=== PATIENT | male | born 1965 | race Two or more races ===

== ENCOUNTER 2020-10-13 11:29 | Emergency (ER) | payer MEDICAID, OTHER ==
[~2020-10-13] VITALS: Ht 175.3 cm; Wt 63.5 kg
[2020-10-13 13:04] LABS: Basophils # (auto) 0 10 ^3/uL (0-0.2); Basophils % (auto) 0.3 % (0.0-2.0); Eosinophils # (auto) 0.1 10 ^3/uL (0-0.8); Lymphocytes # (auto) 0.8 10 ^3/uL (0.4-5.4); Nucleated Red Blood Cells % 0.1 %; Red Blood Cells 3.69 10^6/uL (4.5-5.90)
[2020-10-13 13:05] LABS: Eosinophils % (auto) 0.6 % (0.0-7.0); Hematocrit 38.4 % (41.0-53.0); Hemoglobin 13.4 g/dL (13.5-17.5); Lymphocytes % (auto) 8.7 % (10.0-50.0); Mean Corpuscular Hemoglobin 36.3 pg (28.0-32.0); Mean Corpuscular Hgb Conc. 34.8 g/dL (32.0-36.0); Mean Corpuscular Volume 104.2 fL (80.0-100.0); Monocytes # (auto) 0.5 10 ^3/uL (0-1.3); Monocytes % (auto) 5.6 % (0.0-12.0); Neutrophils # (auto) 8.2 10 ^3/uL (1.6-8.6); Neutrophils % (auto) 84.8 % (37.0-80.0); Platelet Count (auto) 210 10^3/uL (140-450); Red Cell Distribution Width 12.6 % (11.8-14.3); White Blood Cell 9.7 10^3/uL (4.4-10.8)
[2020-10-13 13:17] LABS: Albumin 3.3 g/dL (3.4-5.0); Anion Gap 6 (5-15); Blood Urea Nitrogen 10 mg/dL (7-18); Calcium 8.1 mg/dL (8.5-10.1); Carbon Dioxide 25 mmol/L (21-32); Chloride 109 mmol/L (98-107); Glucose 110 mg/dL (74-106); Potassium 3.9 mmol/L (3.5-5.1); Sodium 140 mmol/L (136-145)
[2020-10-13 13:23] LABS: Alanine Aminotransferase 23 U/L (16-61); Alkaline Phosphatase 91 U/L (45-117); Aspartate Aminotransferase 23 U/L (15-37); BUN/Creatinine Ratio 11.5; Bilirubin, Total 0.3 mg/dL (0.2-1.0); GFR African American 118 mL/min; GFR Non-African American 97 mL/min; Total Protein 6.5 g/dL (6.4-8.2)
[2020-10-13] MEDS ORDERED: SODIUM CHLORIDE 0.9% 1,000 ML IVB ONE (14:00)
[2020-10-13 15:37] LABS: Urine WBC None Seen /hpf (0 - 3)
[2020-10-13 15:41] LABS: INR 1.04 (0.9-1.15); Partial Thromboplastin Time 26.2 sec (23.0-31.2)
[2020-10-13 16:00] LABS: Urine Bacteria NONE SEEN /hpf (None Seen); Urine Blood Negative /uL (Negative); Urine Specific Gravity 1.004 (1.001-1.035)
[2020-10-13] MEDS ORDERED: MECLIZINE HCL 25 MG TAB PO ONE (16:30)
[2020-10-13 22:21] VITALS: BP 108/61
== END 2020-10-13 22:27 | disposition still patient (30) ==
LOC: ER 11:29 → EDSEX 11:29 → ER 22:27
DX: H81.12 Benign paroxysmal vertigo, left ear (principal); D75.89 Other specified diseases of blood and blood-forming organs; M54.5 Low back pain; G89.29 Other chronic pain; E46 Unspecified protein-calorie malnutrition; Z95.0 Presence of cardiac pacemaker; Z86.73 Personal history of transient ischemic attack (TIA), and cerebral infarction without residual deficits
CPT/HCPCS: 36415; 70450; 71045; 80053; 81001; 83735; 84484; 85025; 85610; 85730; 93005; 96360; 99285; J7030; J8597

== ENCOUNTER 2022-09-21 07:43 | Day surgery (SDC) | payer MEDICAID ==
[2022-09-18 14:49] LABS: Basophils # (auto) 0 10 ^3/uL (0-0.2); Eosinophils # (auto) 0.1 10 ^3/uL (0-0.8); Hemoglobin 15.3 g/dL (13.5-17.5); Monocytes # (auto) 0.4 10 ^3/uL (0-1.3)
[2022-09-18 14:52] LABS: Basophils % (auto) 0.3 % (0.0-2.0); Hematocrit 44.9 % (41.0-53.0); Lymphocytes % (auto) 13.8 % (10.0-50.0); Mean Corpuscular Hemoglobin 34.9 pg (28.0-32.0); Mean Corpuscular Volume 102.6 fL (80.0-100.0); Neutrophils # (auto) 5.8 10 ^3/uL (1.6-8.6); Neutrophils % (auto) 78.9 % (37.0-80.0); Nucleated Red Blood Cells % 0.2 %; Red Blood Cells 4.38 10^6/uL (4.5-5.90); Red Cell Distribution Width 13.5 % (11.8-14.3); White Blood Cell 7.3 10^3/uL (4.4-10.8)
[2022-09-18 15:39] LABS: INR 0.93 (0.9-1.15); Partial Thromboplastin Time 26.6 sec (24.6-33.4)
[2022-09-18 15:50] LABS: Albumin 3.8 g/dL (3.4-5.0); BUN/Creatinine Ratio 12.7 (10.0-20.0); Calcium 9.2 mg/dL (8.5-10.1); Potassium 3.9 mmol/L (3.5-5.1)
[2022-09-18 15:52] LABS: Bilirubin, Total 0.3 mg/dL (0.2-1.0); Total Protein 7.5 g/dL (6.4-8.2)
[~2022-09-21] VITALS: Ht 182.9 cm; Wt 68.0 kg
[~2022-09-21 07:43] MED LIST: ALBUAER3 IN; ATO40T PO; CLON0.5T3 PO; EPIN0.1I11 IJ; FERR325T20 PO; FLUO20TA34 PO; FURO1TAB33 PO; HYDR50CA2 PO; LURA40TA PO; ONDA-144 PO; PANC24002 PO; TIOTCAP IN
[2022-09-21 07:50] LABS: Urine Bacteria NONE SEEN /hpf (None Seen); Urine Blood Negative /uL (Negative); Urine Specific Gravity 1.013 (1.001-1.035); Urine WBC 1 /hpf (0 - 3)
[2022-09-21] MEDS ORDERED: LIDOCAINE 2% (LOCAL ANESTH.) PF 5ml SDV ONE (08:39)
[2022-09-21] MEDS ORDERED: PROPOFOL 10 MG/ML 20 ML IV ONE (08:39)
[2022-09-21 09:50] VITALS: BP 124/87
== END 2022-09-21 10:00 | disposition home or self-care (01) ==
LOC: GI 07:43
PROVIDERS: ATTEND Internal Medicine Gastroenterology
DX: Z12.11 Encounter for screening for malignant neoplasm of colon (principal); R11.2 Nausea with vomiting, unspecified; K57.30 Diverticulosis of large intestine without perforation or abscess without bleeding; K64.4 Residual hemorrhoidal skin tags; K64.8 Other hemorrhoids; K29.80 Duodenitis without bleeding; K29.50 Unspecified chronic gastritis without bleeding
CPT/HCPCS: 36415; 43239; 45378; 80053; 81001; 85025; 85610; 85730; 88305; 88342; J2001; J2704; J7030

== ENCOUNTER 2024-09-11 17:22 | Inpatient (IN) | payer MEDICAID ==
[~2024-09-11] VITALS: Ht 182.9 cm; Wt 98.0 kg
[~2024-09-11 17:22] MED LIST changes: -ATO40T PO; +ATOR-507 PO; -FLUO20TA34 PO; +FLUO20TA42 PO; -LURA40TA PO; +LURA40TA2 PO; +PANC2400 PO; -PANC24002 PO
[2024-09-11 18:00] LABS: Urine Bacteria None Seen /hpf (None Seen)
[2024-09-11 18:00] LABS: Eosinophils # (auto) 0.1 10 ^3/uL (0-0.8); Mean Corpuscular Hgb Conc. 34.6 g/dL (32.0-36.0)
[2024-09-11 18:02] LABS: Basophils # (auto) 0 10 ^3/uL (0-0.2); Basophils % (auto) 0.4 % (0.0-2.0); Eosinophils % (auto) 0.6 % (0.0-7.0); Hematocrit 50.1 % (41.0-53.0); Hemoglobin 17.3 g/dL (13.5-17.5); Lymphocytes % (auto) 17.7 % (10.0-50.0); Mean Corpuscular Hemoglobin 36.4 pg (28.0-32.0); Mean Corpuscular Volume 105.1 fL (80.0-100.0); Monocytes # (auto) 0.8 10 ^3/uL (0-1.3); Monocytes % (auto) 6.6 % (0.0-12.0); Neutrophils # (auto) 8.5 10 ^3/uL (1.6-8.6); Neutrophils % (auto) 74.7 % (37.0-80.0); Platelet Count (auto) 207 10^3/uL (140-450); Red Blood Cells 4.76 10^6/uL (4.5-5.90); White Blood Cell 11.4 10^3/uL (4.4-10.8)
[2024-09-11 18:10] LABS: Urine Blood Negative /uL (Negative); Urine Clarity Clear (Clear); Urine Color Yellow (Yellow); Urine Mucus FEW (None Seen); Urine Protein, UAD Negative (Negative); Urine Specific Gravity 1.015 (1.001-1.035); Urine Squamous Epithelial Cell FEW /hpf (<5); Urine Urobilinogen Normal (Negative); Urine WBC 1 /HPF (0-3); Urine pH 6.5 (5.0-9.0)
[2024-09-11 18:22] LABS: Alanine Aminotransferase 22 U/L (7-40); Alkaline Phosphatase 113 U/L (46-116); Anion Gap 8 (5-15); Aspartate Aminotransferase 27 U/L (13-40); BUN/Creatinine Ratio 16.2 (10.0-20.0); Blood Urea Nitrogen 17 mg/dL (9-23); Calcium 10.1 mg/dL (8.7-10.4); Carbon Dioxide 26 mmol/L (20-31); Chloride 106 mmol/L (98-107); Glucose 81 mg/dL (74-106); Sodium 140 mmol/L (136-145); Total Protein 7.8 g/dL (5.7-8.2)
[2024-09-11 18:23] LABS: Bilirubin, Total 0.7 mg/dL (0.2-1.0)
[2024-09-11 18:34] LABS: Albumin 4.9 g/dL (3.2-4.8)
--- NOTE | 2024-09-11 19:06 | ECG ---
[facility] Test Date: 2024-09-11 Test Time: 17:23:00 Pat Name: CHARISSE VO Department: ED Room: [address] [place] [address] Gender: M Solo Musician: mariana : 1965 Requested By: VICKIE SULLIVAN Order Number: [id number] Reading MD: Miguel Gomez Measurements Intervals Fowler Rate: 77 P: 53 MN: 161 QRS: 50 QRSD: 92 T: 26 QT: 387 QTc: 438 Interpretive Statements Sinus rhythm Electronically Signed On 09-12-2024 13:45:53 PDT by Miguel Gomez Please click the below link to view image of tracing.
--- NOTE | 2024-09-11 19:07 | DVH ---
CHEST RADIOGRAPH Indication: cp Technique: Single frontal view of the chest was obtained Comparison: CHEST PORTABLE on DOS: 10/13/20 FINDINGS: Lines and Tubes: None Lungs: No focal consolidation. Pleura: No effusion. No pneumothorax. Cardiomediastinal contours: Unremarkable Bones: No acute osseous abnormality. IMPRESSION: 1. Dual-chamber pacemaker place with pulse generator over the left chest. 2. Hyperinflation without significant change from 10/13/2020.
--- NOTE | 2024-09-11 19:33 | ED.PDOC ---
HPI Comments 59y M who presents to the ED via EMS for chief complaint of chest pain. Pt states he was at home and states at approx 1530 today, he started to have chest pain, tightness in nature, with pain radiating to the neck and L side of jaw, with associated numbness to the L arm. Pt states started to have shortness of breath and states he went to lay down in his bed and noticed he continued to have symptoms and called EMS. EMS arrived on scene and pt was given 1 nitro after which pt pain went from 12/04 to 06/06 with alleviation of his symptoms and pt was brought to the ED. Pt otherwise has noted history of CVA, asthma and sick sinus syndrome with pacemaker placement. Pt otherwise has noted stable vitals with BP 119/82, 02 sat 97% on room air, RR 18, heart rate of 83 and temp of 98.3 F. Pt now in the ED, otherwise denies any associated symptoms at this time. Chief Complaint: Chest Pain Time Seen by MD: 19:00 Primary Care Provider: LAQUITA Martinez Notes: Medications, Allergies Allergies: Coded Allergies: Acetaminophen (Verified Allergy, Mild, 10/13/20) Codeine (Verified Allergy, Mild, 10/13/20) Ibuprofen (Verified Allergy, Mild, 10/13/20) Home Meds Reported Medications Albuterol Sulfate (VENTOLIN MDI) 90 Mcg Ih, 90 MCG IN, INH 09/18/22 Tiotropium Wilbur Monohydrate (Spiriva Handihaler) 18 Mcg Cap, 18 MCG IN, CAP 09/18/22 Epinephrine (Anaphylaxis) (Auvi-Q) 0.1 Mg/0.1 Ml Inj, 0.1 MG IJ O for 1 Day, #1 INJ 09/18/22 Ondansetron (Zofran) 4 Mg Tab, 4 MG PO BID, TAB 09/18/22 Atorvastatin Calcium (Lipitor) 40 Mg Tab, 40 MG PO DAILY, TAB 09/18/22 Furosemide (Lasix) 20 Mg Tb, 20 MG PO DAILY, TAB 09/18/22 Fluoxetine Hcl (Fluoxetine Hcl) 20 Mg Tab, 20 MG PO DAILY, TAB 09/18/22 Pancreatic Enzymes (Creon) 24,000 Unt Cap, [address] UNT PO TID, CAP 09/18/22 Lurasidone Hydrochloride (LATUDA) 40 Mg Tab, 60 MG PO DAILY, TAB 09/18/22 Ferrous Sulfate (Ferosul) 325 Mg Tab, 325 MG PO BID, TAB 09/18/22 Hydroxyzine Pamoate (Hydroxyzine Pamoate) 50 Mg Cap, 50 MG PO DAILY, CAP 09/18/22 Clonazepam (KlonoPIN TABLET) 0.5 Mg Tb, 0.5 MG PO DAILY, TAB 09/18/22 Information Source: Patient, Emergency Med Personnel Mode of Arrival: EMS Brought in by: EMS Past Medical History PAST MEDICAL HISTORY: Asthma, CVA Past Medical History (Other): Sick sinus syndrome Surgical History: Pacemaker Family History Family History: Reviewed,noncontributory to illness Social History Smoker: Non-Smoker Alcohol: Denies ETOH Use Drugs: Marijuana Lives In: Home Constitutional: denies: chills, diaphoresis, fatigue, fever, malaise, sweats, weakness, others EENTM: denies: blurred vision, double vision, ear bleeding, ear discharge, ear drainage, ear pain, ear ringing, eye pain, eye redness, hearing loss, mouth pain, mouth swelling, nasal discharge, nose bleeding, nose congestion, nose pain, photophobia, tearing, throat pain, throat swelling, voice changes, others Respiratory: denies: cough, hemoptysis, orthopnea, SOB at rest, shortness of breath, SOB with excertion, stridor, wheezing, others Cardiovascular: reports: chest pain; denies: dizzy spells, diaphoresis, Dyspnea on exertion, edema, irregular heart beat, left arm pain, lightheadedness, palpitations, PND, syncope, others Gastrointestinal: denies: abdomen distended, abdominal pain, blood streaked bowels, constipated, diarrhea, dysphagia, difficulty swallowing, hematemesis, melena, nausea, poor appetite, poor fluid intake, rectal bleeding, rectal pain, vomiting, others Genitourinary: denies: burning, dysuria, flank pain, frequency, hematuria, incontinence, penile discharge, penile sore, pain, testicle pain, testicle swelling, urgency, others Neurological: denies: dizziness, fainting, headache, left sided numbness, left sided weakness, numbness, paresthesia, pre-existing deficit, right sided numbness, right sided weakness, seizure, speech problems, tingling, tremors, weakness, others Musculoskeletal: denies: back pain, gout, joint pain, joint swelling, muscle pain, muscle stiffness, neck pain, others Integumetry: denies: bruises, change in color, change in hair/nails, dryness, laceration, lesions, lumps, rash, wounds, others Allergic/Immunocompromised: denies: Difficulty Healing, Frequent Infections, Hives, Itching, others Hematologic/Lymphatic: denies: anemia, blood clots, easy bleeding, easy bruising, swollen glands, others Endocrine: denies: excessive hunger, excessive sweating, excessive thirst, excessive urination, flushing, intolerance to cold, intolerance to heat, unexplained weight gain, unexplained weight loss, others Psychiatric: denies: anxiety, bipolar disorder, depression, hopeless, panic disorder, schizophrenia, sleepless, suicidal, others All Other Systems: Reviewed and Negative Physical Exam General Appearance: No Apparent Distress HEENT: Other (Pupils and face symmetric. Moist mucous membranes.) Neck: Full Range of Motion, Normal Inspection Respiratory: Lungs Clear, No Accessory Muscle Use, No Respiratory Distress, Normal Breath Sounds Cardiovascular: No Edema, No JVD, Regular Rate/Rhythm Breast Exam: Deferred Gastrointestinal: Non Tender, Soft Genitalia: Deferred Pelvic: Deferred Rectal: Deferred Extremities: Normal inspection, Normal range of motion, Non-tender, No pedal edema Neurologic: Alert (Oriented x4), Normal Affect, Normal Mood, Other (Ambulatory without difficulty.) Cerebellar Function: NOT DONE Reflexes: NOT DONE Skin: Dry, Normal Color, Warm Lymphatic: NOT DONE EKG EKG : Comments Sinus rhythm, rate 77, normal intervals, normal axis, normal QRS, no ST/T changes. Was a procedure done? Was a procedure done?: No CP Differential Dx Differential Diagnosis: Angina, Anxiety / Panic Attack, Electrolyte Disorder, Heart Failure, MA, Pulmonary Embolus Differential Diagnosis: Angina, Aortic dissection, Chest Wall Pain, Costochondritis, Esophageal reflux/spasm, Gastritis, Pericarditis, Pneumonia X-Ray, Labs, Meds, VS Vital Signs Date Time Temp Pulse Resp B/P (MAP) Pulse Ox O2 Delivery O2 Flow Rate FiO2 09/11/24 17:27 98.3 83 18 119/82 (94) 97 98.3 09/11/24 17:23 77 Lab Test 09/11/24 18:37 09/11/24 17:58 09/11/24 17:41 Range/Units Troponin I High Sensitivity 19 17 </=54 ng/L Urine Color Yellow Yellow Urine Clarity Clear Clear Urine pH 6.5 5.0-9.0 Urine Specific [place] 1.015 1.001-1.035 Urine Protein Negative Negative Urine Ketones Negative Negative Urine Blood Negative Negative /uL Urine Nitrite Negative Negative Urine Bilirubin Negative Negative Urine Urobilinogen Normal Negative mg/dL Urine Leukocyte Esterase Negative Negative /uL Urine RBC <1 0 - 3 /hpf Urine Microscopic WBC 1 0-3 /HPF Urine Squamous Epithelial Cells Few <5 /hpf Urine Bacteria None seen None Seen /hpf Urine Mucus Few None Seen Urine Glucose Normal Normal mg/dL White Blood Count 11.4 H 4.4-10.8 10^3/uL Red Blood Count 4.76 4.5-5.90 10^6/uL Hemoglobin 17.3 13.5-17.5 g/dL Hematocrit 50.1 41.0-53.0 % Mean Corpuscular Volume 105.1 H 80.0-100.0 fL Mean Corpuscular Hemoglobin 36.4 H 28.0-32.0 pg Mean Corpuscular Hemoglobin Concent 34.6 32.0-36.0 g/dL Red Cell Distribution Width 13.0 11.8-14.3 % Platelet Count 207 140-450 10^3/uL Mean Platelet Volume 6.0 L 6.9-10.8 fL Neutrophils (%) (Auto) 74.7 37.0-80.0 % Lymphocytes (%) (Auto) 17.7 10.0-50.0 % Monocytes (%) (Auto) 6.6 0.0-12.0 % Eosinophils (%) (Auto) 0.6 0.0-7.0 % Basophils (%) (Auto) 0.4 0.0-2.0 % Neutrophils # (Auto) 8.5 1.6-8.6 10 ^3/uL Lymphocytes # (Auto) 2.0 0.4-5.4 10 ^3/uL Monocytes # (Auto) 0.8 0-1.3 10 ^3/uL Eosinophils # (Auto) 0.1 0-0.8 10 ^3/uL Basophils # (Auto) 0 0-0.2 10 ^3/uL Nucleated Red Blood Cells 0.0 % Sodium Level 140 136-145 mmol/L Potassium Level 4.0 3.5-5.1 mmol/L Chloride Level 106 98-107 mmol/L Carbon Dioxide Level 26 20-31 mmol/L Anion Gap 8 5-15 Blood Urea Nitrogen 17 9-23 mg/dL Creatinine 1.05 0.700-1.30 mg/dL Glomerular Filtration Rate Calc 82 >90 mL/min BUN/Creatinine Ratio 16.2 10.0-20.0 Serum Glucose 81 74-106 mg/dL Calcium Level 10.1 8.7-10.4 mg/dL Total Bilirubin 0.7 0.2-1.0 mg/dL Aspartate Amino Transferase (AST) 27 13-40 U/L Alanine Aminotransferase (ALT) 22 7-40 U/L Alkaline Phosphatase 113 46-116 U/L B-Type Natriuretic Peptide 7.26 0-100 pg/mL Total Protein 7.8 5.7-8.2 g/dL Albumin 4.9 H 3.2-4.8 g/dL [place] [id number] Ph: [phone] DIAGNOSTIC IMAGING Diagnostic Imaging Report : [id number] Signed PATIENT: CHARISSE VO ACCT: [id number] UNIT: [id number] : 1965 LOC: ER ROOM / BED: / AGE / SEX: 59 / M ADM STATUS: REG ER SERVICE 45 ORDERING PHYSICIAN: VICKIE VICTORIA MD PROCEDURE(s): CXRP - CHEST PORTABLE REASON: cp ORDER NUMBER(s): [id number], ACCESSION NUMBER(s): [id number] CHEST RADIOGRAPH Indication: cp Technique: Single frontal view of the chest was obtained Comparison: CHEST PORTABLE on DOS: 10/13/20 FINDINGS: Lines and Tubes: None Lungs: No focal consolidation. Pleura: No effusion. No pneumothorax. Cardiomediastinal contours: Unremarkable Bones: No acute osseous abnormality. IMPRESSION: 1. Dual-chamber pacemaker place with pulse generator over the left chest. 2. Hyperinflation without significant change from 10/13/2020. ATED BY: ORLIN MILLS Jr., DO DICTATED DATE/TIME: 09/11/241903 SIGNED BY: ORLIN MILLS Jr., DO SIGNED DATE/TIME: 09/11/241903 CC: X-Ray, Labs, Meds, VS Comment 59-year-old male with a history of asthma, CVA, sick sinus syndrome status post pacemaker insertion complaining of chest pain Vitals unremarkable Exam unremarkable Rhythm strip independently interpreted by me: Sinus rhythm, rate 77, no ectopy. Chest x-ray IMPRESSION: 1. Dual-chamber pacemaker place with pulse generator over the left chest. 2. Hyperinflation without significant change from 10/13/2020. CBC remarkable for WBC 11.4, metabolic panel unremarkable, BNP and 2 serial troponins negative Patient treated with the following in the ED: Nitro-Bid 1/2 in applied to chest wall with resolution of chest pain. Aspirin was not given due to stated allergy. Plan is to admit the patient for Cardiology evaluation. Time of 1ST Reevaluation: 19:30 Reevaluation 1ST: Unchanged Patient Education/Counseling: Diagnosis, Treatment Family Education/Counseling: No Family Present Departure 1 Departure Time of Disposition: 20:00 Impression: Primary Impression: Chest pain with high risk for cardiac etiology Disposition: ADMITTED INPATIENT Admit to: Tele Condition: Guarded Critical Care Note Critical Care Time?: No Stability Stability form required: No Heart Score Heart Score: Heart Score Response (Comments) Value History Highly Suspicious 2 EKG Normal 0 Age 45-64 1 Risk Factors 1 or 2 risk factors 1 Troponin Normal limit 0 Total 4 I personally scribed for VICKIE VICTORIA MD ([facility]) on 09/11/24 at 19:33. Electronically submitted by Landon Hairston ([facility]). VICKIE VICTORIA MD Sep 11, 2024 19:33
[2024-09-11] MEDS ORDERED: NITROGLYCERIN 0.4 MG SL TAB SL PRN (20:00)
[2024-09-11] MEDS ORDERED: MORPHINE SULFATE INJ 2 MG/ml SYRG IV PRN (20:00)
[2024-09-11] MEDS ORDERED: ONDANSETRON HCL 4 MG/2 ML VIAL IV PRN ×2 (20:00→20:15)
[2024-09-11] MEDS ORDERED: ALBUTEROL SULF 2.5 MG/0.5ML(0.5%) NEB SOLN NEB PRN (20:00)
[2024-09-11 20:20] VITALS: BP 119/82; PULSE 60; RESP 16; TEMP 98.3; O2SAT 96
[2024-09-11 20:28] LABS: Triglycerides 136 mg/dL (< 150)
[2024-09-11 20:30] LABS: HDL Cholesterol 43 mg/dL (40-59)
[2024-09-11 21:32] LABS: Cholesterol 264 mg/dL (< 200); LDL Cholesterol 210 mg/dL (< 100)
[2024-09-11] MEDS: ATORVASTATIN 20 MG TAB PO SCH (22:43)
[2024-09-11] MEDS: NITROGLYCERIN 2% OINT 1GM PKG TD ONE (22:43)
[2024-09-12] VITALS (9 sets, daily range): BP systolic 103–138; BP diastolic 71–83; PULSE 59–90; RESP 14–20; TEMP 97.4–98; O2SAT 96–98
--- NOTE | 2024-09-12 03:36 | DVHHP2 ---
History of Present Illness Reason for Visit: Chest pain History of Present Illness 59-year-old male presents for evaluation of chest pain. Patient reports a one day history of substernal sharp chest pain that was radiating to his back and up onto his jaw. He also reports left arm numbness. Patient also developed some shortness for breath. Currently rates the pain at 5/10 intensity. Past Medical History Asthma, CVA, sick sinus syndrome Past Surgical History Pacemaker Family History Noncontributory Smoke: No ALCOHOL: none Drugs: Marijuana Lives: with Family Review of Systems Review of Systems Review of systems are currently negative otherwise addressed in HPI. Allergies: Coded Allergies: NSAIDs (Verified Allergy, Severe, 09/11/24) Acetaminophen (Verified Allergy, Mild, 10/13/20) Codeine (Verified Allergy, Mild, 10/13/20) Ibuprofen (Verified Allergy, Mild, 10/13/20) Medications Current Medications Medications Dose Ordered Sig/Lauren Route Start Time Stop Time Status Last Admin Dose Admin Ondansetron HCl 4 mg Q4HP PRN IV 09/11/24 20:00 Nitroglycerin 0.4 mg Q5MINP PRN SL 09/11/24 20:00 Morphine Sulfate 2 mg Q30M PRN IV 09/11/24 20:00 Atorvastatin Calcium 40 mg HS PO 09/11/24 22:00 09/11/24 22:43 40 MG Aspirin 81 mg DAILY PO 09/12/24 10:00 Future Hold Albuterol 2.5 mg Q6HPRN PRN NEB 09/11/24 20:00 Furosemide 20 mg DAILY PO 09/12/24 10:00 Ondansetron HCl 4 mg Q4HP PRN IV 09/11/24 20:15 UNV Exam Vital Signs Vital Signs Date Time Temp Pulse Resp B/P (MAP) Pulse Ox O2 Delivery O2 Flow Rate FiO2 09/12/24 03:19 69 09/12/24 02:12 17 96 Room Air* 0 21 09/12/24 02:12 97.6 138/83 (101) 97.6 Exam Gen: 59-year-old male in mild distress Skin: Warm, dry, normal color and texture, no rash. HEENT: Normocephalic atraumatic, mucous membranes moist and pink. Neck: Cervical and supraclavicular nodes normal without enlargement, trachea is midline, thyroid gland is normal without masses. Pulmonary: Clear to auscultation and percussion bilaterally. Cardiac: Regular rate and rhythm. No murmur Abdomen: Soft, nontender, nondistended, bowel sounds present all 4 quadrants, no guarding, no rigidity, no organomegaly. Extremities: No cyanosis, clubbing, no edema Neuro: Cranial nerves II through XII grossly intact, normal affect and speech, no focal motor deficits. Labs/Xrays ORDERING PHYSICIAN: VICKIE VICTORIA MD PROCEDURE(s): CXRP - CHEST PORTABLE REASON: cp ORDER NUMBER(s): [id number], ACCESSION NUMBER(s): [id number] CHEST RADIOGRAPH Indication: cp Technique: Single frontal view of the chest was obtained Comparison: CHEST PORTABLE on DOS: 10/13/20 FINDINGS: Lines and Tubes: None Lungs: No focal consolidation. Pleura: No effusion. No pneumothorax. Cardiomediastinal contours: Unremarkable Bones: No acute osseous abnormality. IMPRESSION: 1. Dual-chamber pacemaker place with pulse generator over the left chest. 2. Hyperinflation without significant change from 10/13/2020. Labs Test 09/11/24 18:37 09/11/24 17:58 09/11/24 17:55 09/11/24 17:41 Range/Units Troponin I High Sensitivity 19 </=54 ng/L Thyroid Stimulating Hormone (TSH) 1.32 0.55-4.78 uIU/mL Urine Color Yellow Yellow Urine Clarity Clear Clear Urine pH 6.5 5.0-9.0 Urine Specific [place] 1.015 1.001-1.035 Urine Protein Negative Negative Urine Ketones Negative Negative Urine Blood Negative Negative /uL Urine Nitrite Negative Negative Urine Bilirubin Negative Negative Urine Urobilinogen Normal Negative mg/dL Urine Leukocyte Esterase Negative Negative /uL Urine RBC <1 0 - 3 /hpf Urine Microscopic WBC 1 0-3 /HPF Urine Squamous Epithelial Cells Few <5 /hpf Urine Bacteria None seen None Seen /hpf Urine Mucus Few None Seen Urine Glucose Normal Normal mg/dL Triglycerides Level 136 < 150 mg/dL Cholesterol Level 264 H < 200 mg/dL LDL Cholesterol 210 H < 100 mg/dL HDL Cholesterol 43 40-59 mg/dL White Blood Count 11.4 H 4.4-10.8 10^3/uL Red Blood Count 4.76 4.5-5.90 10^6/uL Hemoglobin 17.3 13.5-17.5 g/dL Hematocrit 50.1 41.0-53.0 % Mean Corpuscular Volume 105.1 H 80.0-100.0 fL Mean Corpuscular Hemoglobin 36.4 H 28.0-32.0 pg Mean Corpuscular Hemoglobin Concent 34.6 32.0-36.0 g/dL Red Cell Distribution Width 13.0 11.8-14.3 % Platelet Count 207 140-450 10^3/uL Mean Platelet Volume 6.0 L 6.9-10.8 fL Neutrophils (%) (Auto) 74.7 37.0-80.0 % Lymphocytes (%) (Auto) 17.7 10.0-50.0 % Monocytes (%) (Auto) 6.6 0.0-12.0 % Eosinophils (%) (Auto) 0.6 0.0-7.0 % Basophils (%) (Auto) 0.4 0.0-2.0 % Neutrophils # (Auto) 8.5 1.6-8.6 10 ^3/uL Lymphocytes # (Auto) 2.0 0.4-5.4 10 ^3/uL Monocytes # (Auto) 0.8 0-1.3 10 ^3/uL Eosinophils # (Auto) 0.1 0-0.8 10 ^3/uL Basophils # (Auto) 0 0-0.2 10 ^3/uL Nucleated Red Blood Cells 0.0 % Sodium Level 140 136-145 mmol/L Potassium Level 4.0 3.5-5.1 mmol/L Chloride Level 106 98-107 mmol/L Carbon Dioxide Level 26 20-31 mmol/L Anion Gap 8 5-15 Blood Urea Nitrogen 17 9-23 mg/dL Creatinine 1.05 0.700-1.30 mg/dL Glomerular Filtration Rate Calc 82 >90 mL/min BUN/Creatinine Ratio 16.2 10.0-20.0 Serum Glucose 81 74-106 mg/dL Calcium Level 10.1 8.7-10.4 mg/dL Total Bilirubin 0.7 0.2-1.0 mg/dL Aspartate Amino Transferase (AST) 27 13-40 U/L Alanine Aminotransferase (ALT) 22 7-40 U/L Alkaline Phosphatase 113 46-116 U/L B-Type Natriuretic Peptide 7.26 0-100 pg/mL Total Protein 7.8 5.7-8.2 g/dL Albumin 4.9 H 3.2-4.8 g/dL Assessment/Plan Assessment/Plan Assessment Chest pain rule out ACS Dyslipidemia Plan Admit the patient to telemetry to the hospitalist Cardiology consultation Echocardiogram pending Resume home medications Continue treatment per orders. Plan discussed with: Patient My Orders Orders - EDVIN GONSALEZ Procedure Category Date Status Time Admit ADMIT 09/11/24 Transmitted 20:00 Ondansetron Hcl PHA 09/11/24 In Process (Zofran) 20:00 Cardiac DIET 09/12/24 Transmitted Diet-2gna,Lofat,Lochol Breakfast Echo 2d Mode Cardiac US 09/11/24 Logged DOP 20:00 Bedrest With Bathroom ASHLEY 09/11/24 In Process Privileg 20:00 Nitroglycerin PHA 09/11/24 In Process Sublingual (Ntrostat 20:00 Morphine Sulfate PHA 09/11/24 In Process Injection 20:00 Stat Ekg For Chest ASHLEY 09/11/24 In Process Pain 20:00 Notify Md Of Changes ASHLEY 09/11/24 In Process From Base 20:00 Dredge Pipe Operator For ASHLEY 09/11/24 In Process 24 Hours 20:00 Emergency Dysrhythmia ASHLEY 09/11/24 In Process Protocol 20:00 Rhythm Strips Once ASLHEY 09/11/24 In Process Every Shift 20:00 Oxygen By Nasal RT 09/11/24 Transmitted Cannula 20:00 Atorvastatin (Lipitor) PHA 09/11/24 In Process 22:00 Aspirin Tablet PHA 09/12/24 In Process 10:00 Albuterol Medneb PHA 09/11/24 In Process (Ventolin Medneb) 20:00 Furosemide Tablet PHA 09/12/24 In Process (Lasix Tablet) 10:00 B-Type Natriuretic LAB 09/12/24 Logged Peptide 04:00 Condition: Fair ASHLEY 09/11/24 In Process 20:05 Pharmacy ASHLEY 09/11/24 In Process Clarification: 20:26 Pharmacy ASHLEY 09/11/24 In Process Clarification: 21:01 Date of Service: Sep 11, 2024 Billing Provider: EDVIN GONSALEZ Common Visit Codes: [id number] INP/OBS CARE (HIGH) EDVIN GONSALEZ AGACNP Sep 12, 2024 03:36
[2024-09-12] MEDS: FUROSEMIDE 20 MG TAB PO SCH (09:18)
[2024-09-12] MEDS ORDERED: ASPirin 81 mg TAB PO SCH (10:00)
[2024-09-12] MEDS: PANTOPRAZOLE 40 MG TAB PO ONE (11:25)
[2024-09-12 11:39] LABS: Hepatitis B Surface Antibody Positive (Negative); Hepatitis C Antibody Negative (Negative)
--- NOTE | 2024-09-12 16:07 | DVHPNRES ---
Progress Note Date Seen: Sep 12, 2024 Resident Creating Document: GERMÁN ARMENDARIZ RESIDENT Medical Necessity Reason Pt with a Central, PICC or Fol: No Subjective Review of Systems Patient is 59-year-old male with past medical history of CVA, sick sinus syndrome status post pacemaker, asthma who came to the hospital with a chief complaint of substernal chest pain, radiating to back, left arm and jaw pain. Patient was given nitroglycerin which immediately resolved chest pain. Patient continued to be on telemetry, sinus rhythm. EKG showed no significant ST elevation. Troponin is not elevated. Cardiology consultation has been done for chest pain, echocardiogram is pending. Patient seen and examined at bedside. No new complaints. No active chest pain at this point. Pending echocardiogram and waiting for Cardiology consultation. Objective vital signs Vital Sign Date Time Temp Pulse Resp B/P (MAP) Pulse Ox O2 Delivery O2 Flow Rate FiO2 09/12/24 14:18 Room Air* 0 21 09/12/24 14:18 97.9 62 20 124/81 (95) 96 97.9 medications Current Medications Medications Dose Ordered Sig/Lauren Route Start Time Stop Time Status Last Admin Dose Admin Ondansetron HCl 4 mg Q4HP PRN IV 09/11/24 20:00 Nitroglycerin 0.4 mg Q5MINP PRN SL 09/11/24 20:00 Morphine Sulfate 2 mg Q30M PRN IV 09/11/24 20:00 Albuterol 2.5 mg Q6HPRN PRN NEB 09/11/24 20:00 Ondansetron HCl 4 mg Q4HP PRN IV 09/11/24 20:15 UNV Atorvastatin Calcium 80 mg HS PO 09/12/24 22:00 Clonazepam 0.5 mg DAILY PO 09/13/24 10:00 Furosemide 20 mg DAILY PO 09/13/24 10:00 Ferrous Sulfate 325 mg BID PO 09/12/24 22:00 Fluoxetine HCl 20 mg DAILY PO 09/13/24 10:00 Patient Own Medication 60 mg DAILY PO 09/13/24 10:00 Pantoprazole Sodium 40 mg DAILY@0600 PO 09/13/24 06:00 Examination General Appearance: Cooperative. Well developed. Well nourished. NAD Head Exam: Normal inspection Neck Exam: Normal inspection. Non-tender. Normal alignment Pulmonary/Respiratory: Chest non-tender. Clear bilateral breath sounds Cardiovascular/Chest: Regular rate and rhythm. No murmurs. No JVD. Peripheral Pulses: 2+ Radial (R). 2+ Radial (L). 2+ Pedal (R). 2+ Pedal (L) Abdominal Exam: Normal bowel sounds. Soft. Nontender. No hepatospenomegaly. No masses Ankle Exam: Negative ankle edema Lower extremities: Negative lower extremity edema Neuro/Mental Status: A&O x4. Coherent Thoughts/Psych: Normal thought pattern. Appropriate mood and affect. Good judgement and insight Appearance: In no acute distress Skin Exam: Normal inspection. Normal color. Warm. Dry laboratory and microbiology Laboratory Tests 09/11/24 17:41 Test 09/11/24 17:41 Range/Units Serum Glucose 81 74-106 mg/dL Labs and/or images reviewed: Labs reviewed by me Problem List/Assessment/Plan Problem List/Assessment/Plan Chest pain ? Unstable angina History of sick sinus syndrome Status post pacemaker Dyslipidemia History of asthma Depression no suicide ideation History of CVA Allergy of aspirin Plan/recommendation -patient was not given aspirin given allergy, was put on therapeutic Lovenox as anticoagulation until cardiology evaluation was not done. Antiplatelets therapy is not given until no plan for CABG. -high-dose atorvastatin given LDL level is greater than 190. -pending echocardiogram -EKG no significant ST or T elevation. -troponin nontender -pending cardiology evaluation -DVT prophylaxis with Lovenox -PUD prophylaxis with Protonix Goals of care discussed greater than 24 minutes, full code status. Plan discussed with Dr. Govea Plan discussed with: Patient, Other (RN) My Orders My Orders Orders - GERMÁN ARMENDARIZ RESIDENT Procedure Category Date Status Time Atorvastatin (Lipitor) PHA 09/12/24 In Process 22:00 Clonazepam Tablet PHA 09/13/24 In Process (Klonopin Tablet) 10:00 Furosemide Tablet PHA 09/13/24 In Process (Lasix Tablet) 10:00 Ferrous Sulfate Tablet PHA 09/12/24 In Process 22:00 Fluoxetine Capsule PHA 09/13/24 In Process (Prozac Capsule) 10:00 (Nf) Lurasidone PHA 09/13/24 In Process Hydrochloride (Latuda) 10:00 Pantoprazole Tablet PHA 09/13/24 In Process (Protonix Tablet) 06:00 * Cardiology Consult CONS 09/12/24 Transmitted 15:16 Date of Service: Sep 12, 2024 Billing Provider: SONG GOVEA MD Common Visit Codes: [id number] INP/OBS CARE(HIGH) GERMÁN ARMENDARIZ RESIDENT Sep 12, 2024 16:06 SONG GOVEA MD Sep 12, 2024 16:58
--- NOTE | 2024-09-12 16:32 | DVHINCON2 ---
Date Seen: Sep 12, 2024 Referring Physician MD [place] resident Reason for Consultation Chest pain History of Present Illness This is a 51-year-old male patient who presents to emergency room with chest pain that began yesterday at approximately 3:30 p.m.. He reports he was walking his dog when suddenly he began to have chest pain. He describes it as unprovoked, tight in nature, constant, midsternal with radiation to right and left-sided chest as well as left arm numbness and jaw pain. EMS was called. The patient reports receiving nitroglycerin via EMS personnel. The patient reports that the nitroglycerin helped relieve his symptoms. Initial twelve lead electrocardiogram reveals normal sinus rhythm without any significant ST segment changes. Initial troponin level of 17ng/L with flat trend thereafter. Significant past medical history includes sick sinus syndrome status post permanent pacemaker (Biotronik), CVA in 2016 without any residual deficit, asthma, depression, anxiety, and tobacco use. The patient also reports a remote history of substance abuse over 20 years ago. The patient reports his primary director report is . Past Medical History Past medical history reviewed. No other significant than mentioned above. Past Surgical History Hemorrhoidectomy Family History: Alcoholism G8 FATHER G8 SISTER Arthritis G8 MOTHER G8 BROTHER G8 SISTER Chronic obstructive pulmonary disease G8 BROTHER G8 SISTER Depression G8 BROTHER G8 BROTHER G8 SISTER Diabetes mellitus G8 MOTHER Glaucoma G8 MOTHER Hypercholesterolemia G8 MOTHER G8 BROTHER Hypertension G8 MOTHER G8 BROTHER Ischemic heart disease G8 FATHER Suicide G8 BROTHER Family History Family history reviewed. Social History Patient has a 40 pack-year history Patient admits to marijuana use, reports two previous methamphetamine use with last time being approximately 25 years ago Patient reports history of alcohol abuse, now a recovering alcoholic Allergies: Coded Allergies: NSAIDs (Verified Allergy, Severe, 09/11/24) Acetaminophen (Verified Allergy, Mild, 10/13/20) Codeine (Verified Allergy, Mild, 10/13/20) Ibuprofen (Verified Allergy, Mild, 10/13/20) Aspirin (Verified Allergy, Unknown, 09/12/24) Home Meds Reported Medications Albuterol Sulfate (VENTOLIN MDI) 90 Mcg Ih, 90 MCG IN, INH 09/18/22 Tiotropium [place] Monohydrate (Spiriva Handihaler) 18 Mcg Cap, 18 MCG IN, CAP 09/18/22 Epinephrine (Anaphylaxis) (Auvi-Q) 0.1 Mg/0.1 Ml Inj, 0.1 MG IJ O for 1 Day, #1 INJ 09/18/22 Ondansetron (Zofran) 4 Mg Tab, 4 MG PO BID, TAB 09/18/22 Atorvastatin Calcium (Lipitor) 40 Mg Tab, 40 MG PO DAILY, TAB 09/18/22 Furosemide (Lasix) 20 Mg Tb, 20 MG PO DAILY, TAB 09/18/22 Fluoxetine Hcl (Fluoxetine Hcl) 20 Mg Tab, 20 MG PO DAILY, TAB 09/18/22 Pancreatic Enzymes (Creon) 24,000 Unt Cap, 69630 UNT PO TID, CAP 09/18/22 Lurasidone Hydrochloride (LATUDA) 40 Mg Tab, 60 MG PO DAILY, TAB 09/18/22 Ferrous Sulfate (Ferosul) 325 Mg Tab, 325 MG PO BID, TAB 09/18/22 Hydroxyzine Pamoate (Hydroxyzine Pamoate) 50 Mg Cap, 50 MG PO DAILY, CAP 09/18/22 Clonazepam (KlonoPIN TABLET) 0.5 Mg Tb, 0.5 MG PO DAILY, TAB 09/18/22 Home Meds Home medications reviewed. Current Medications Current Medications Medications (Trade) Dose Ordered Sig/Lauren Route PRN Reason Start Time Stop Time Status Last Admin Ondansetron HCl (Zofran) 4 mg Q4HP PRN IV NAUSEA / VOMITING 09/11/24 20:00 Nitroglycerin (Ntrostat Sublingual) 0.4 mg Q5MINP PRN SL FOR CHEST PAIN 09/11/24 20:00 Morphine Sulfate 2 mg Q30M PRN IV FOR CHEST PAIN 09/11/24 20:00 Atorvastatin Calcium (Lipitor) 40 mg HS PO 09/11/24 22:00 09/12/24 08:20 DC 09/11/24 22:43 Aspirin 81 mg DAILY PO 09/12/24 10:00 09/12/24 10:44 DC Albuterol (Ventolin Medneb) 2.5 mg Q6HPRN PRN NEB SHORTNESS OF BREATH 09/11/24 20:00 Furosemide (Lasix Tablet) 20 mg DAILY PO 09/12/24 10:00 09/12/24 13:56 DC 09/12/24 09:18 Ondansetron HCl (Zofran) 4 mg Q4HP PRN IV NAUSEA / VOMITING 09/11/24 20:15 UNV Atorvastatin Calcium (Lipitor) 80 mg HS PO 09/12/24 22:00 Clonazepam (KlonoPIN TABLET) 0.5 mg DAILY PO 09/13/24 10:00 Furosemide (Lasix Tablet) 20 mg DAILY PO 09/13/24 10:00 Ferrous Sulfate 325 mg BID PO 09/12/24 22:00 Fluoxetine HCl (PROzac CAPSULE) 20 mg DAILY PO 09/13/24 10:00 Patient Own Medication 60 mg DAILY PO 09/13/24 10:00 Pantoprazole Sodium (Protonix Tablet) 40 mg DAILY@0600 PO 09/13/24 06:00 Review of Systems Constitutional: No symptom reported Ears, Nose, & Throat: No symptom reported Eyes: No symptom reported Neurological: No symptoms reported Pulmonary/Respiratory: No symptoms reported Cardiovascular: Chest pain Gastrointestinal: No symptom reported Genitourinary: No symptom reported Musculoskeletal: No symptom reported Skin: No symptom reported Psychiatric: No symptom reported Endocrine: No symptom reported Hematologic/Lymphatic: No symptom reported Vital Signs Vital Signs Date Time Temp Pulse Resp B/P (MAP) Pulse Ox O2 Delivery O2 Flow Rate FiO2 09/12/24 14:18 Room Air* 0 21 09/12/24 14:18 97.9 62 20 124/81 (95) 96 97.9 Physical Exam General Appearance: Cooperative. Well-developed. Well-nourished. No acute distress. Pulmonary/Respiratory: Clear, bilateral breaths sounds. Cardiovascular/Chest: Regular rate and rhythm. Peripheral Pulses: 2+ Radial (R). 2+ Radial (L). 2+ Pedal (R). 2+ Pedal (L) Abdominal Exam: Normal bowel sounds. Ankle Exam: Negative ankle edema Lower extremities: Negative lower extremity edema Neuro/Mental Status: A/OX4, coherent. Thoughts/Psych: Normal thought pattern. Appropriate mood and affect. Good judgment and insight. Appearance: No acute distress. Skin Exam: Normal inspection. Normal color. Warm and dry. Labs/Diagnostic Data Labs Test 09/12/24 05:49 09/11/24 18:37 09/11/24 17:58 09/11/24 17:55 Range/Units Hemoglobin A1c 5.2 <5.7 % A1C B-Type Natriuretic Peptide 12.79 0-100 pg/mL Hepatitis B Surface Antibody Positive H Negative Hepatitis C Antibody Negative Negative Troponin I High Sensitivity 19 </=54 ng/L Thyroid Stimulating Hormone (TSH) 1.32 0.55-4.78 uIU/mL Urine Color Yellow Yellow Urine Clarity Clear Clear Urine pH 6.5 5.0-9.0 Urine Specific [place] 1.015 1.001-1.035 Urine Protein Negative Negative Urine Ketones Negative Negative Urine Blood Negative Negative /uL Urine Nitrite Negative Negative Urine Bilirubin Negative Negative Urine Urobilinogen Normal Negative mg/dL Urine Leukocyte Esterase Negative Negative /uL Urine RBC <1 0 - 3 /hpf Urine Microscopic WBC 1 0-3 /HPF Urine Squamous Epithelial Cells Few <5 /hpf Urine Bacteria None seen None Seen /hpf Urine Mucus Few None Seen Urine Glucose Normal Normal mg/dL Triglycerides Level 136 < 150 mg/dL Cholesterol Level 264 H < 200 mg/dL LDL Cholesterol 210 H < 100 mg/dL HDL Cholesterol 43 40-59 mg/dL Test 09/11/24 17:41 Range/Units White Blood Count 11.4 H 4.4-10.8 10^3/uL Red Blood Count 4.76 4.5-5.90 10^6/uL Hemoglobin 17.3 13.5-17.5 g/dL Hematocrit 50.1 41.0-53.0 % Mean Corpuscular Volume 105.1 H 80.0-100.0 fL Mean Corpuscular Hemoglobin 36.4 H 28.0-32.0 pg Mean Corpuscular Hemoglobin Concent 34.6 32.0-36.0 g/dL Red Cell Distribution Width 13.0 11.8-14.3 % Platelet Count 207 140-450 10^3/uL Mean Platelet Volume 6.0 L 6.9-10.8 fL Neutrophils (%) (Auto) 74.7 37.0-80.0 % Lymphocytes (%) (Auto) 17.7 10.0-50.0 % Monocytes (%) (Auto) 6.6 0.0-12.0 % Eosinophils (%) (Auto) 0.6 0.0-7.0 % Basophils (%) (Auto) 0.4 0.0-2.0 % Neutrophils # (Auto) 8.5 1.6-8.6 10 ^3/uL Lymphocytes # (Auto) 2.0 0.4-5.4 10 ^3/uL Monocytes # (Auto) 0.8 0-1.3 10 ^3/uL Eosinophils # (Auto) 0.1 0-0.8 10 ^3/uL Basophils # (Auto) 0 0-0.2 10 ^3/uL Nucleated Red Blood Cells 0.0 % Sodium Level 140 136-145 mmol/L Potassium Level 4.0 3.5-5.1 mmol/L Chloride Level 106 98-107 mmol/L Carbon Dioxide Level 26 20-31 mmol/L Anion Gap 8 5-15 Blood Urea Nitrogen 17 9-23 mg/dL Creatinine 1.05 0.700-1.30 mg/dL Glomerular Filtration Rate Calc 82 >90 mL/min BUN/Creatinine Ratio 16.2 10.0-20.0 Serum Glucose 81 74-106 mg/dL Calcium Level 10.1 8.7-10.4 mg/dL Total Bilirubin 0.7 0.2-1.0 mg/dL Aspartate Amino Transferase (AST) 27 13-40 U/L Alanine Aminotransferase (ALT) 22 7-40 U/L Alkaline Phosphatase 113 46-116 U/L Total Protein 7.8 5.7-8.2 g/dL Albumin 4.9 H 3.2-4.8 g/dL Assessment Chest pain, rule out coronary artery disease Sick sinus syndrome status post permanent pacemaker (Biotronik) Dyslipidemia, newly diagnosed Asthma CVA without residual deficit Depression Anxiety Remote history of polysubstance use Tobacco use Plan/Recommendation We will continue with the following plan/recommendations (Dr. Littlejohn): * Transthoracic echocardiogram to evaluate cardiac function * Chest pain protocol * HEART score: 2 points * Lipid-lowering agent * Coronary angiogram * Permanent pacemaker interrogation * Close Cardiac surveillance Patient seen and examined at bedside with . Given the patient's clinical presentation, the patient was offered a coronary angiogram with left heart catheterization by director report . The procedure was discussed with the patient in full detail including risks and benefits. Risks include but are not limited to bleeding, contrast-induced nephropathy, stroke, and even . The patient understands and is agreeable to undergo the procedure. The patient will be tentatively scheduled for 09/15/24. Thank you for allowing us to care for this patient. Please call with any questions or concerns. Critical care time spent: 42 minutes This medical document was created using an electronic medical record system with voice recognition software and computerized dictation system. Although this document has been carefully reviewed, there might still be some phonetic and typographical errors. Occasional wrong-word or ``sound-alike substitutions may have occurred due to the inherent limitations of voice recognition software. These areas are purely typographical due to imperfections of the software programs and do not reflect any compromise in the patient's medical care. Please read the chart carefully and recognize, using context, where these substitutions have occurred. Plan discussed with: Patient NYHA Physical activity limitations: NA Date of Service: Sep 12, 2024 Billing Provider: RON LINDSEY Cardiology Common Codes: 22059-[id number] INP/OBS CARE (High) Cardiology Consultation Codes: [id number] CONSULT <45MIN RON LINDSEY Sep 12, 2024 16:32
[2024-09-12] MEDS: ATORVASTATIN 20 MG TAB PO SCH (20:55)
[2024-09-12] MEDS: FERROUS SULFATE 325mg EC TAB PO SCH (20:56)
--- NOTE | 2024-09-12 23:37 | DVHINCON2 ---
Date Seen: Sep 12, 2024 Referring Physician MD [place] resident Reason for Consultation Chest pain History of Present Illness This is a 51-year-old male past medical history of sick sinus syndrome status post permanent pacemaker (Biotronik), CVA in 2016 without any residual deficit, asthma, depression, anxiety, and tobacco use who presents to emergency room with a complaint of chest pain that began yesterday at approximately 3:30 p.m.. Patient reports he was walking his dog when suddenly he began to have chest pain. He describes it as unprovoked, tight in nature, constant, midsternal with radiation to right and left-sided chest as well as left arm numbness and jaw pain. Patient reports receiving nitroglycerin via EMS personnel. The patient reports that the nitroglycerin helped relieve his symptoms. Initial twelve lead electrocardiogram reveals normal sinus rhythm without any significant ST segment changes. Initial troponin level of 17ng/L with flat trend thereafter. The patient also reports a remote history of substance abuse over 20 years ago. Pat ient follow-up with me in my office in the outpatient setting. WBC 11.4. Chest x-ray shows a dual-chamber pacemaker place with pulse generator over the left chest. Patient was admitted to the hospital. I am asked to consult on this patient. Family History: Alcoholism G8 FATHER G8 SISTER Arthritis G8 MOTHER G8 BROTHER G8 SISTER Chronic obstructive pulmonary disease G8 BROTHER G8 SISTER Depression G8 BROTHER G8 BROTHER G8 SISTER Diabetes mellitus G8 MOTHER Glaucoma G8 MOTHER Hypercholesterolemia G8 MOTHER G8 BROTHER Hypertension G8 MOTHER G8 BROTHER Ischemic heart disease G8 FATHER Suicide G8 BROTHER Allergies: Coded Allergies: NSAIDs (Verified Allergy, Severe, 09/11/24) Acetaminophen (Verified Allergy, Mild, 10/13/20) Codeine (Verified Allergy, Mild, 10/13/20) Ibuprofen (Verified Allergy, Mild, 10/13/20) Aspirin (Verified Allergy, Unknown, 09/12/24) Home Meds Reported Medications Albuterol Sulfate (VENTOLIN MDI) 90 Mcg Ih, 90 MCG IN, INH 09/18/22 Tiotropium [place] Monohydrate (Spiriva Handihaler) 18 Mcg Cap, 18 MCG IN, CAP 09/18/22 Epinephrine (Anaphylaxis) (Auvi-Q) 0.1 Mg/0.1 Ml Inj, 0.1 MG IJ O for 1 Day, #1 INJ 09/18/22 Ondansetron (Zofran) 4 Mg Tab, 4 MG PO BID, TAB 09/18/22 Atorvastatin Calcium (Lipitor) 40 Mg Tab, 40 MG PO DAILY, TAB 09/18/22 Furosemide (Lasix) 20 Mg Tb, 20 MG PO DAILY, TAB 09/18/22 Fluoxetine Hcl (Fluoxetine Hcl) 20 Mg Tab, 20 MG PO DAILY, TAB 09/18/22 Pancreatic Enzymes (Creon) 24,000 Unt Cap, 72729 UNT PO TID, CAP 09/18/22 Lurasidone Hydrochloride (LATUDA) 40 Mg Tab, 60 MG PO DAILY, TAB 09/18/22 Ferrous Sulfate (Ferosul) 325 Mg Tab, 325 MG PO BID, TAB 09/18/22 Hydroxyzine Pamoate (Hydroxyzine Pamoate) 50 Mg Cap, 50 MG PO DAILY, CAP 09/18/22 Clonazepam (KlonoPIN TABLET) 0.5 Mg Tb, 0.5 MG PO DAILY, TAB 09/18/22 Current Medications Current Medications Medications (Trade) Dose Ordered Sig/Lauren Route PRN Reason Start Time Stop Time Status Last Admin Ondansetron HCl (Zofran) 4 mg Q4HP PRN IV NAUSEA / VOMITING 09/11/24 20:00 Nitroglycerin (Ntrostat Sublingual) 0.4 mg Q5MINP PRN SL FOR CHEST PAIN 09/11/24 20:00 Morphine Sulfate 2 mg Q30M PRN IV FOR CHEST PAIN 09/11/24 20:00 Atorvastatin Calcium (Lipitor) 40 mg HS PO 09/11/24 22:00 09/12/24 08:20 DC 09/11/24 22:43 Aspirin 81 mg DAILY PO 09/12/24 10:00 09/12/24 10:44 DC Albuterol (Ventolin Medneb) 2.5 mg Q6HPRN PRN NEB SHORTNESS OF BREATH 09/11/24 20:00 Furosemide (Lasix Tablet) 20 mg DAILY PO 09/12/24 10:00 09/12/24 13:56 DC 09/12/24 09:18 Ondansetron HCl (Zofran) 4 mg Q4HP PRN IV NAUSEA / VOMITING 09/11/24 20:15 UNV Atorvastatin Calcium (Lipitor) 80 mg HS PO 09/12/24 22:00 Clonazepam (KlonoPIN TABLET) 0.5 mg DAILY PO 09/13/24 10:00 Furosemide (Lasix Tablet) 20 mg DAILY PO 09/13/24 10:00 Ferrous Sulfate 325 mg BID PO 09/12/24 22:00 Fluoxetine HCl (PROzac CAPSULE) 20 mg DAILY PO 09/13/24 10:00 Patient Own Medication 60 mg DAILY PO 09/13/24 10:00 Pantoprazole Sodium (Protonix Tablet) 40 mg DAILY@0600 PO 09/13/24 06:00 Review of Systems Constitutional: No symptom reported Ears, Nose, & Throat: No symptom reported Eyes: No symptom reported Neurological: No symptoms reported Pulmonary/Respiratory: No symptoms reported Cardiovascular: Chest pain Gastrointestinal: No symptom reported Genitourinary: No symptom reported Musculoskeletal: No symptom reported Skin: No symptom reported Psychiatric: No symptom reported Endocrine: No symptom reported Hematologic/Lymphatic: No symptom reported Vital Signs Vital Signs Date Time Temp Pulse Resp B/P (MAP) Pulse Ox O2 Delivery O2 Flow Rate FiO2 09/12/24 14:18 Room Air* 0 21 09/12/24 14:18 97.9 62 20 124/81 (95) 96 97.9 Physical Exam GENERAL: Alert and oriented x 3. No acute distress. EYES: PERRL, EOMI. Anicteric. HENT: Moist mucous membranes. LUNGS: Clear to auscultation bilaterally. CARDIOVASCULAR: Regular rate and rhythm. ABDOMEN: Soft, nontender and nondistended. EXTREMITIES: No edema. NEUROLOGIC: No focal neurological deficits. SKIN: Warm, dry. Labs/Diagnostic Data Labs Test 09/12/24 05:49 09/11/24 18:37 09/11/24 17:58 09/11/24 17:55 Range/Units Hemoglobin A1c 5.2 <5.7 % A1C B-Type Natriuretic Peptide 12.79 0-100 pg/mL Hepatitis B Surface Antibody Positive H Negative Hepatitis C Antibody Negative Negative Troponin I High Sensitivity 19 </=54 ng/L Thyroid Stimulating Hormone (TSH) 1.32 0.55-4.78 uIU/mL Urine Color Yellow Yellow Urine Clarity Clear Clear Urine pH 6.5 5.0-9.0 Urine Specific [place] 1.015 1.001-1.035 Urine Protein Negative Negative Urine Ketones Negative Negative Urine Blood Negative Negative /uL Urine Nitrite Negative Negative Urine Bilirubin Negative Negative Urine Urobilinogen Normal Negative mg/dL Urine Leukocyte Esterase Negative Negative /uL Urine RBC <1 0 - 3 /hpf Urine Microscopic WBC 1 0-3 /HPF Urine Squamous Epithelial Cells Few <5 /hpf Urine Bacteria None seen None Seen /hpf Urine Mucus Few None Seen Urine Glucose Normal Normal mg/dL Triglycerides Level 136 < 150 mg/dL Cholesterol Level 264 H < 200 mg/dL LDL Cholesterol 210 H < 100 mg/dL HDL Cholesterol 43 40-59 mg/dL Test 09/11/24 17:41 Range/Units White Blood Count 11.4 H 4.4-10.8 10^3/uL Red Blood Count 4.76 4.5-5.90 10^6/uL Hemoglobin 17.3 13.5-17.5 g/dL Hematocrit 50.1 41.0-53.0 % Mean Corpuscular Volume 105.1 H 80.0-100.0 fL Mean Corpuscular Hemoglobin 36.4 H 28.0-32.0 pg Mean Corpuscular Hemoglobin Concent 34.6 32.0-36.0 g/dL Red Cell Distribution Width 13.0 11.8-14.3 % Platelet Count 207 140-450 10^3/uL Mean Platelet Volume 6.0 L 6.9-10.8 fL Neutrophils (%) (Auto) 74.7 37.0-80.0 % Lymphocytes (%) (Auto) 17.7 10.0-50.0 % Monocytes (%) (Auto) 6.6 0.0-12.0 % Eosinophils (%) (Auto) 0.6 0.0-7.0 % Basophils (%) (Auto) 0.4 0.0-2.0 % Neutrophils # (Auto) 8.5 1.6-8.6 10 ^3/uL Lymphocytes # (Auto) 2.0 0.4-5.4 10 ^3/uL Monocytes # (Auto) 0.8 0-1.3 10 ^3/uL Eosinophils # (Auto) 0.1 0-0.8 10 ^3/uL Basophils # (Auto) 0 0-0.2 10 ^3/uL Nucleated Red Blood Cells 0.0 % Sodium Level 140 136-145 mmol/L Potassium Level 4.0 3.5-5.1 mmol/L Chloride Level 106 98-107 mmol/L Carbon Dioxide Level 26 20-31 mmol/L Anion Gap 8 5-15 Blood Urea Nitrogen 17 9-23 mg/dL Creatinine 1.05 0.700-1.30 mg/dL Glomerular Filtration Rate Calc 82 >90 mL/min BUN/Creatinine Ratio 16.2 10.0-20.0 Serum Glucose 81 74-106 mg/dL Calcium Level 10.1 8.7-10.4 mg/dL Total Bilirubin 0.7 0.2-1.0 mg/dL Aspartate Amino Transferase (AST) 27 13-40 U/L Alanine Aminotransferase (ALT) 22 7-40 U/L Alkaline Phosphatase 113 46-116 U/L Total Protein 7.8 5.7-8.2 g/dL Albumin 4.9 H 3.2-4.8 g/dL Assessment Chest pain, rule out coronary artery disease. Sick sinus syndrome status post permanent pacemaker (Biotronik). Dyslipidemia, newly diagnosed. Asthma. CVA without residual deficit. Depression. Anxiety. Remote history of polysubstance use. Tobacco use. Plan/Recommendation I agree with your ongoing assessment and care of plan. Patient has been seen by Kassidy Garcia NP on my behalf, her and I discussed the plan with the patient. Transthoracic echocardiogram to evaluate cardiac function. Chest pain protocol. HEART score: 2 points. Lipid-lowering agent. Coronary angiogram. Permanent pacemaker interrogation. Close Cardiac surveillance. Additional plan as per the hospital course. Plan discussed with: Patient NYHA Physical activity limitations: NA Date of Service: Sep 12, 2024 Billing Provider: CLARICE BUTLER MD Cardiology Common Codes: [id number] INP/OBS CARE (High) Cardiology Consultation Codes: [id number] CONSULT <45MIN CLARICE BUTLER MD Sep 12, 2024 16:40
[2024-09-13] VITALS (9 sets, daily range): BP systolic 107–123; BP diastolic 65–83; PULSE 59–93; RESP 15–18; TEMP 97.3–98; O2SAT 96–99
--- NOTE | 2024-09-13 01:27 | DVHSR ---
APPROVED REPORT EXAM: Two-dimensional and M-mode echocardiogram with Doppler and color Doppler. Blood Pressure: 143/91 mmHg INDICATION Chest Pain Surgery/Intervention Pacemaker: RISK FACTORS Height: 71, Weight: 150 DIMENSIONS LVDd4.6 (3.8-5.7cm)LA (2D)3.7 (1.9-4.0cm)Aortic Root3.4 (2.0-3.7cm) LVDs3.1 (2.5-4.0cm)LA (MM) (1.9-4.0cm)Aortic Cusp Exc1.9 (1.5-2.0cm) EF (%) 60.0 (55-70%)Rt. Atrium4.5 (1.9-4.0cm)Asc. Aorta cm IVSd1.1 (0.7-1.1cm)RV (D) (1.8-2.4cm) PWd1.0 (0.7-1.1cm) Mitral Valve MitralMitral Stenosis E wave0.54m/sMV Mean GR.mmHg A wave0.51m/sMV Peak GR.mmHg E/A ratio1.12D MVAcm2 DECEL [id number] 1/2 [id number] IVRTmsDop MVA2.46cm2 Aortic Valve Aortic ValveAortic Stenosis V10.73m/Emi Mean GR.2mmHg V20.88m/Emi Peak GR.3mmHg LVOT Diameter2.5 (1.8-2.4cm)Doppler AVA4.07cm2 Pulmonic Valve V21.08m/s Tricuspid Valve TR Velocity2.24m/s [id number] Conclusion NORMAL LV EF AND IS 65% NORMAL VALVES NORMAL RV FUNCTION NO EFFUSION
[2024-09-13] MEDS: PANTOPRAZOLE 40 MG TAB PO SCH (06:32)
[2024-09-13 06:50] LABS: Eosinophils # (auto) 0.1 10 ^3/uL (0-0.8); Nucleated Red Blood Cells % 0.1 %; Red Cell Distribution Width 12.7 % (11.8-14.3)
[2024-09-13 06:52] LABS: Basophils # (auto) 0 10 ^3/uL (0-0.2); Basophils % (auto) 0.5 % (0.0-2.0); Eosinophils % (auto) 1.6 % (0.0-7.0); Hematocrit 47.4 % (41.0-53.0); Hemoglobin 16.3 g/dL (13.5-17.5); Lymphocytes % (auto) 29.5 % (10.0-50.0); Mean Corpuscular Hemoglobin 36.3 pg (28.0-32.0); Mean Corpuscular Hgb Conc. 34.5 g/dL (32.0-36.0); Mean Corpuscular Volume 105.3 fL (80.0-100.0); Monocytes # (auto) 0.7 10 ^3/uL (0-1.3); Monocytes % (auto) 9.6 % (0.0-12.0); Neutrophils # (auto) 4.1 10 ^3/uL (1.6-8.6); Neutrophils % (auto) 58.8 % (37.0-80.0); Platelet Count (auto) 179 10^3/uL (140-450); White Blood Cell 6.9 10^3/uL (4.4-10.8)
[2024-09-13 07:05] LABS: Anion Gap 8 (5-15); Carbon Dioxide 23 mmol/L (20-31); Potassium 3.7 mmol/L (3.5-5.1); Sodium 138 mmol/L (136-145)
[2024-09-13 07:07] LABS: Calcium 9.9 mg/dL (8.7-10.4)
[2024-09-13 07:11] LABS: BUN/Creatinine Ratio 16.8 (10.0-20.0); Blood Urea Nitrogen 16 mg/dL (9-23); Glucose 95 mg/dL (74-106)
[2024-09-13 07:16] LABS: Chloride 107 mmol/L (98-107)
[2024-09-13] MEDS: ENOXAPARIN SOD 40 MG/0.4 ML SYRINGE SC SCH (10:00)
[2024-09-13] MEDS: clonazePAM 0.5 MG TAB PO SCH (10:07)
[2024-09-13] MEDS: FLUoxetine HCL 20 MG CAP PO SCH (10:07)
[2024-09-13] MEDS: FUROSEMIDE 20 MG TAB PO SCH (10:08)
--- NOTE | 2024-09-13 13:06 | DVHPN2 ---
Subjective The patient is seen and examined at bedside. No complaint today. Reviewed: Care Plan, H&P, Labs, Medications, Previous Orders, Radiology Changes from previous H/P or p: No Changes Objective Vitals Vital Signs Date Time Temp Pulse Resp B/P (MAP) Pulse Ox O2 Delivery O2 Flow Rate FiO2 09/13/24 13:00 98.0 93 17 122/72 (89) 97 98.0 09/13/24 08:12 Room Air* 0 21 Intake/Output Intake and Output 09/13/24 07:00 Intake Total 820 ml Output Total 2 ml Balance 818 ml Intake Oral 820 ml Output Stool Total 2 ml # Voids 4 General Appearance: Alert, Oriented X3, Cooperative, No acute distress HEENT: Atraumatic, PERRLA, EOMI, Mucous membr. moist/pink Neck: Supple Lungs: Clear to auscultation, Normal air movement Cardiovascular: Regular rate, Normal S1, Normal S2, No murmurs, Gallops, Rubs Abdomen: Normal bowel sounds, Soft, No tenderness Neuro: Cranial nerves 3-12 NL Psych/Mental Status: Mental status NL Medications Current Medications Medications Dose Ordered Sig/Lauren Route Start Time Stop Time Status Last Admin Dose Admin Ondansetron HCl 4 mg Q4HP PRN IV 09/11/24 20:00 Nitroglycerin 0.4 mg Q5MINP PRN SL 09/11/24 20:00 Morphine Sulfate 2 mg Q30M PRN IV 09/11/24 20:00 Albuterol 2.5 mg Q6HPRN PRN NEB 09/11/24 20:00 Ondansetron HCl 4 mg Q4HP PRN IV 09/11/24 20:15 UNV Atorvastatin Calcium 80 mg HS PO 09/12/24 22:00 09/12/24 20:55 80 MG Clonazepam 0.5 mg DAILY PO 09/13/24 10:00 09/13/24 10:07 0.5 MG Furosemide 20 mg DAILY PO 09/13/24 10:00 09/13/24 10:08 20 MG Ferrous Sulfate 325 mg BID PO 09/12/24 22:00 09/13/24 10:07 325 MG Fluoxetine HCl 20 mg DAILY PO 09/13/24 10:00 09/13/24 10:07 20 MG Patient Own Medication 60 mg DAILY PO 09/13/24 10:00 Pantoprazole Sodium 40 mg DAILY@0600 PO 09/13/24 06:00 09/13/24 06:32 40 MG Enoxaparin Sodium 40 mg DAILY SC 09/13/24 10:00 Laboratory Results Laboratory Tests 09/13/24 06:01 Chemistry Test 09/13/24 06:01 Calcium Level 9.9 mg/dL (8.7-10.4) Urinalysis Test 09/11/24 17:58 Urine Color Yellow (Yellow) Urine Clarity Clear (Clear) Urine pH 6.5 (5.0-9.0) Urine Specific [place] 1.015 (1.001-1.035) Urine Protein Negative (Negative) Urine Ketones Negative (Negative) Urine Blood Negative /uL (Negative) Urine Nitrite Negative (Negative) Urine Bilirubin Negative (Negative) Urine Urobilinogen Normal mg/dL (Negative) Urine Leukocyte Esterase Negative /uL (Negative) Urine RBC <1 /hpf (0 - 3) Urine Microscopic WBC 1 /HPF (0-3) Urine Squamous Epithelial Cells Few /hpf (<5) Urine Bacteria None seen /hpf (None Seen) Urine Mucus Few (None Seen) Urine Glucose Normal mg/dL (Normal) Labs and/or images reviewed: Labs reviewed by me Assessment/Plan Assessment/Plan Acute chest pain likely due to Unstable angina R/O ACS History of sick sinus syndrome Status post pacemaker Dyslipidemia History of asthma Depression no suicide ideation History of CVA Allergy of aspirin Acute diarrhea -patient was not given aspirin given allergy, was put on therapeutic Lovenox as anticoagulation until cardiology evaluation was not done. Antiplatelets therapy is not given until no plan for CABG. -Continue high dose atorvastatin. Waiting for rn psych to see the patient. -echocardiogram showed an LVEF of 65% with normal cardiac valves and no pericardial effusion -EKG no significant ST or T elevation. -troponin on normal range -cardiology assessed the patient and determine that patient might benefit of left heart catheterization which we will be scheduled for tomorrow a.m. -hold diuretics due to possible dehydration due to diarrhea -ordered stool WBC and stool cultures -DVT prophylaxis with Lovenox -PUD prophylaxis with Protonix This medical document was created using an electronic medical record system with [employer] direct computerized dictation system. Although this document has been carefully reviewed, there may still be some phonetic and typographical errors. These areas are purely typographical due to imperfections of the software programs, and do not reflect any compromise in the patient's medical care. Plan discussed with: Patient Date of Service: Sep 13, 2024 Billing Provider: CHRIS VALDERRAMA MD Common Visit Codes: [id number] INP/OBS CARE(HIGH) CHRIS VALDERRAMA MD Sep 13, 2024 13:06
--- NOTE | 2024-09-13 21:24 | DVHPN2 ---
Progress Note - Dictate Date Seen: Sep 13, 2024 Medical Necessity Reason Pt with a Central, PICC or Fol: No Subjective Patient was seen and evaluated in follow up. Patient is c/o chest pain. Patient is recommended for coronary angiogram with left heart catheterization. The procedure was discussed with the patient in full detail including risks and benefits. Risks include but are not limited to bleeding, contrast-induced nephropathy, stroke, and even . The patient understands and is agreeable to undergo the procedure. The patient will be tentatively scheduled for 09/15/24. CMP is unremarkable. vital signs Vital Sign Date Time Temp Pulse Resp B/P (MAP) Pulse Ox O2 Delivery O2 Flow Rate FiO2 09/13/24 21:10 97 Room Air 0.0 09/13/24 21:10 21 09/13/24 16:59 97.8 79 16 120/72 (88) 97.8 Total Intake and Output 09/12/24 09/12/24 09/13/24 15:00 23:00 07:00 Intake Total 720 ml 100 ml Output Total 2 ml Balance 720 ml 98 ml medications Current Medications Medications Dose Ordered Sig/Lauren Route Start Time Stop Time Status Last Admin Dose Admin Ondansetron HCl 4 mg Q4HP PRN IV 09/11/24 20:00 Nitroglycerin 0.4 mg Q5MINP PRN SL 09/11/24 20:00 Morphine Sulfate 2 mg Q30M PRN IV 09/11/24 20:00 Albuterol 2.5 mg Q6HPRN PRN NEB 09/11/24 20:00 Ondansetron HCl 4 mg Q4HP PRN IV 09/11/24 20:15 UNV Atorvastatin Calcium 80 mg HS PO 09/12/24 22:00 09/13/24 21:13 80 MG Clonazepam 0.5 mg DAILY PO 09/13/24 10:00 09/13/24 10:07 0.5 MG Furosemide 20 mg DAILY PO 09/13/24 10:00 09/13/24 10:08 20 MG Ferrous Sulfate 325 mg BID PO 09/12/24 22:00 09/13/24 21:13 325 MG Fluoxetine HCl 20 mg DAILY PO 09/13/24 10:00 09/13/24 10:07 20 MG Patient Own Medication 60 mg DAILY PO 09/13/24 10:00 Pantoprazole Sodium 40 mg DAILY@0600 PO 09/13/24 06:00 09/13/24 06:32 40 MG Enoxaparin Sodium 40 mg DAILY SC 09/13/24 10:00 objective GENERAL: Alert and oriented x 3. No acute distress. EYES: PERRL, EOMI. Anicteric. HENT: Moist mucous membranes. LUNGS: Clear to auscultation bilaterally. CARDIOVASCULAR: Regular rate and rhythm. ABDOMEN: Soft, nontender and nondistended. EXTREMITIES: No edema. NEUROLOGIC: No focal neurological deficits. SKIN: Warm, dry. laboratory and microbiology Laboratory Tests 09/13/24 06:01 Test 09/13/24 06:01 Range/Units Serum Glucose 95 74-106 mg/dL Problem List Chest pain. Sick sinus syndrome status post permanent pacemaker (Biotronik). Dyslipidemia, newly diagnosed. Asthma. CVA without residual deficit. Depression. Anxiety. Remote history of polysubstance use. Tobacco use. Assessment/Plan Continued all current supportive medical care. Transthoracic echocardiogram to evaluate cardiac function. Coronary angiogram with left heart catheterization. Lipitor. DVT and GI prophylactics. Diuretics with Lasix. Morphine for pain management. Nitro SL. Additional plan as per the hospital course. Plan discussed with: Patient CLARICE BUTLER MD Sep 13, 2024 21:24
[2024-09-14] VITALS (11 sets, daily range): BP systolic 110–148; BP diastolic 72–95; PULSE 61–110; RESP 16–18; TEMP 97.2–98.1; O2SAT 68–99
[2024-09-14 08:26] LABS: Mean Corpuscular Volume 104.6 fL (80.0-100.0)
[2024-09-14 08:29] LABS: Basophils # (auto) 0 10 ^3/uL (0-0.2); Basophils % (auto) 0.5 % (0.0-2.0); Eosinophils # (auto) 0.1 10 ^3/uL (0-0.8); Eosinophils % (auto) 1.7 % (0.0-7.0); Hematocrit 48.4 % (41.0-53.0); Hemoglobin 17.1 g/dL (13.5-17.5); Lymphocytes # (auto) 2.1 10 ^3/uL (0.4-5.4); Lymphocytes % (auto) 29.9 % (10.0-50.0); Mean Corpuscular Hemoglobin 36.9 pg (28.0-32.0); Mean Corpuscular Hgb Conc. 35.3 g/dL (32.0-36.0); Monocytes # (auto) 0.7 10 ^3/uL (0-1.3); Monocytes % (auto) 9.7 % (0.0-12.0); Neutrophils % (auto) 58.2 % (37.0-80.0); Nucleated Red Blood Cells % 0.2 %; Platelet Count (auto) 190 10^3/uL (140-450); Red Blood Cells 4.63 10^6/uL (4.5-5.90); Red Cell Distribution Width 12.8 % (11.8-14.3); White Blood Cell 6.9 10^3/uL (4.4-10.8)
[2024-09-14 08:32] LABS: Anion Gap 6 (5-15); Carbon Dioxide 28 mmol/L (20-31); Chloride 105 mmol/L (98-107); Potassium 4.2 mmol/L (3.5-5.1); Sodium 139 mmol/L (136-145)
[2024-09-14 08:38] LABS: Glucose 101 mg/dL (74-106)
[2024-09-14 08:39] LABS: BUN/Creatinine Ratio 16.1 (10.0-20.0); Blood Urea Nitrogen 18 mg/dL (9-23)
[2024-09-14 08:42] LABS: Calcium 10.2 mg/dL (8.7-10.4)
[2024-09-14 12:56] LABS: INR 1.03 (0.9-1.15); Partial Thromboplastin Time 30.1 SEC (24.5-34.5); Prothrombin Time 10.9 sec (9.3-11.8)
--- NOTE | 2024-09-14 13:48 | DVHPNRES ---
Progress Note Date Seen: Sep 14, 2024 Resident Creating Document: MAGALIE HENLEY RESIDENT Has the PT tested + for MRSA If YES, has PT been informed?: No Medical Necessity Reason Pt with a Central, PICC or Fol: No Subjective Review of Systems This is a 59-year-old male with past medical history of CVA, sick sinus syndrome status post pacemaker, asthma who came to the hospital with a chief complaint of substernal chest pain, radiating to back, left arm and jaw pain. Patient was given nitroglycerin which immediately resolved chest pain. Patient continued to be on telemetry, sinus rhythm. EKG showed no significant ST elevation. Troponin is not elevated. Cardiology consultation has been done for chest pain, echocardiogram showed an LVEF of 65% with normal cardiac valves and no pericardial effusion. The patient was admitted for further assessment and management. Patient seen and examined at bedside. Patient is alert and oriented in person, place and time. Patient denies fever/chills, chest pain, shortness of breath or any other symptoms at this time. Echocardiogram showed an LVEF of 65% with normal cardiac valves and no pericardial effusion. Cardiology is in the case and schedule the patient for left heart catheterization tomorrow a.m. continue current medical management. ROS Constitutional: Denies weight loss, fever and chills. HEENT: Denies changes in vision and hearing. Respiratory: Denies shortness of breath and cough Cardiovascular: Denies chest discomfort or palpitations GI: Denies abdominal pain, nausea, vomiting and diarrhea. : Denies dysuria and urinary frequency. Musculoskeletal: Denies myalgias and joint pain Skin: Denies rash and pruritus. Neurological: Denies dizziness, headache, vision or hearing problems Objective vital signs Vital Sign Date Time Temp Pulse Resp B/P (MAP) Pulse Ox O2 Delivery O2 Flow Rate FiO2 09/14/24 09:14 132/85 09/14/24 08:40 97.6 86 17 98 97.6 09/14/24 08:05 Room Air* 0 21 Total Intake and Output 09/13/24 09/13/24 09/14/24 15:00 23:00 07:00 Intake Total 650 ml 600 ml Balance 650 ml 600 ml medications Current Medications Medications Dose Ordered Sig/Lauren Route Start Time Stop Time Status Last Admin Dose Admin Ondansetron HCl 4 mg Q4HP PRN IV 09/11/24 20:00 Nitroglycerin 0.4 mg Q5MINP PRN SL 09/11/24 20:00 Morphine Sulfate 2 mg Q30M PRN IV 09/11/24 20:00 Albuterol 2.5 mg Q6HPRN PRN NEB 09/11/24 20:00 Ondansetron HCl 4 mg Q4HP PRN IV 09/11/24 20:15 UNV Atorvastatin Calcium 80 mg HS PO 09/12/24 22:00 09/13/24 21:13 80 MG Clonazepam 0.5 mg DAILY PO 09/13/24 10:00 09/14/24 09:14 0.5 MG Furosemide 20 mg DAILY PO 09/13/24 10:00 09/14/24 09:14 20 MG Ferrous Sulfate 325 mg BID PO 09/12/24 22:00 09/14/24 09:14 325 MG Fluoxetine HCl 20 mg DAILY PO 09/13/24 10:00 09/14/24 09:13 20 MG Patient Own Medication 60 mg DAILY PO 09/13/24 10:00 Pantoprazole Sodium 40 mg DAILY@0600 PO 09/13/24 06:00 09/14/24 05:45 40 MG Enoxaparin Sodium 40 mg DAILY SC 09/13/24 10:00 09/14/24 09:13 40 MG Examination Physical Examination General: Patient alert and oriented in person, place and time. Patient following commands. HEENT: Normocephalic, atraumatic, moist mucous membranes Respiratory/pulmonary: Clear lungs bilaterally, no associated crackles or wheezes. Cardiovascular: Normal heart sounds S1 and S2 with no associated murmurs Abdomen: Abdomen nondistended, there is no pain to palpation in any of the abdominal quadrants, no palpable masses. Extremities: There is no peripheral edema present at the lower extremities. Peripheral Pulses: 3+ Radial (R). 3+ Radial (L). 3+ Dorsalis pedis (R). 3+ Dorsalis pedis(L) Skin: No rashes or pruritus, there is no sacral edema present at this time. Neurological: Intact cranial nerves with no focal neurologic deficits laboratory and microbiology Laboratory Tests 09/14/24 08:13 Test 09/14/24 08:13 Range/Units Serum Glucose 101 74-106 mg/dL Problem List/Assessment/Plan Problem List/Assessment/Plan Assessment/Plan Acute chest pain likely due to Unstable angina R/O ACS History of sick sinus syndrome Status post pacemaker Dyslipidemia History of asthma Depression no suicide ideation History of CVA Allergy of aspirin Acute diarrhea -patient was not given aspirin given allergy, was put on therapeutic Lovenox as anticoagulation until cardiology evaluation was not done. Antiplatelets therapy is not given until no plan for CABG. -Continue high dose atorvastatin -echocardiogram showed an LVEF of 65% with normal cardiac valves and no pericardial effusion -EKG no significant ST or T elevation. -troponin on normal range -cardiology assessed the patient and determine that patient might benefit of left heart catheterization which we will be scheduled for tomorrow a.m. -hold diuretics due to possible dehydration due to diarrhea -ordered stool WBC and stool cultures -DVT prophylaxis with Lovenox -PUD prophylaxis with Protonix Goals of care discussed with the patient at bedside for > 25min, FULL CODE Plan discussed with Dr. Perez Plan discussed with: Patient My Orders My Orders Orders - MAGALIE HENLEY Procedure Category Date Status Time Stool Wbc LAB 09/14/24 Transmitted 13:41 Stool Bacterial TERRI 09/14/24 Transmitted Culture 13:41 Date of Service: Sep 14, 2024 Billing Provider: CHRIS PEREZ MD Common Visit Codes: [id number] INP/OBS CARE(HIGH) MAGALIE HENLEY RESIDENT Sep 14, 2024 13:48 CHRIS PEREZ MD Sep 14, 2024 22:51
--- NOTE | 2024-09-14 23:37 | DVHPN2 ---
Progress Note - Dictate Date Seen: Sep 14, 2024 Has the PT tested + for MRSA If YES, has PT been informed?: No Medical Necessity Reason Pt with a Central, PICC or Fol: No Subjective Patient was seen and evaluated in follow up. Patient complains of chest pain. Echocardiogram shows an EF of 65%. Patient is scheduled for coronary angiogram with left heart catheterization. Telemetry reviewed. vital signs Vital Sign Date Time Temp Pulse Resp B/P (MAP) Pulse Ox O2 Delivery O2 Flow Rate FiO2 09/14/24 13:00 98.0 110 16 116/81 (93) 98 98.0 09/14/24 08:05 Room Air* 0 21 Total Intake and Output 09/13/24 09/13/24 09/14/24 15:00 23:00 07:00 Intake Total 650 ml 600 ml Balance 650 ml 600 ml medications Current Medications Medications Dose Ordered Sig/Lauren Route Start Time Stop Time Status Last Admin Dose Admin Ondansetron HCl 4 mg Q4HP PRN IV 09/11/24 20:00 Nitroglycerin 0.4 mg Q5MINP PRN SL 09/11/24 20:00 Morphine Sulfate 2 mg Q30M PRN IV 09/11/24 20:00 Albuterol 2.5 mg Q6HPRN PRN NEB 09/11/24 20:00 Ondansetron HCl 4 mg Q4HP PRN IV 09/11/24 20:15 UNV Atorvastatin Calcium 80 mg HS PO 09/12/24 22:00 09/13/24 21:13 80 MG Clonazepam 0.5 mg DAILY PO 09/13/24 10:00 09/14/24 09:14 0.5 MG Furosemide 20 mg DAILY PO 09/13/24 10:00 09/14/24 09:14 20 MG Ferrous Sulfate 325 mg BID PO 09/12/24 22:00 09/14/24 09:14 325 MG Fluoxetine HCl 20 mg DAILY PO 09/13/24 10:00 09/14/24 09:13 20 MG Patient Own Medication 60 mg DAILY PO 09/13/24 10:00 Pantoprazole Sodium 40 mg DAILY@0600 PO 09/13/24 06:00 09/14/24 05:45 40 MG Enoxaparin Sodium 40 mg DAILY SC 09/13/24 10:00 09/14/24 09:13 40 MG objective GENERAL: Alert and oriented x 3. No acute distress. EYES: PERRL, EOMI. Anicteric. HENT: Moist mucous membranes. LUNGS: Clear to auscultation bilaterally. CARDIOVASCULAR: Regular rate and rhythm. ABDOMEN: Soft, nontender and nondistended. EXTREMITIES: No edema. NEUROLOGIC: No focal neurological deficits. SKIN: Warm, dry. laboratory and microbiology Laboratory Tests 09/14/24 08:13 Test 09/14/24 08:13 Range/Units Serum Glucose 101 74-106 mg/dL Problem List Chest pain. Sick sinus syndrome status post permanent pacemaker (Biotronik). Dyslipidemia, newly diagnosed. Asthma. CVA without residual deficit. Depression. Anxiety. Remote history of polysubstance use. Tobacco use. Assessment/Plan Continued all current supportive medical care. Coronary angiogram with left heart catheterization. Lipitor. DVT and GI prophylactics. Diuretics with Lasix. Morphine for pain management. Nitro SL. Additional plan as per the hospital course. Plan discussed with: Patient CLARICE BUTLER MD Sep 14, 2024 14:15
[2024-09-15] VITALS (12 sets, daily range): BP systolic 106–133; BP diastolic 65–88; PULSE 60–81; RESP 12–17; TEMP 97.7–98.5; O2SAT 94–98
[2024-09-15 07:46] LABS: Basophils # (auto) 0 10 ^3/uL (0-0.2); Nucleated Red Blood Cells % 0.2 %
[2024-09-15 07:58] LABS: Chloride 103 mmol/L (98-107); Potassium 3.9 mmol/L (3.5-5.1); Sodium 139 mmol/L (136-145)
[2024-09-15 07:59] LABS: Anion Gap 7 (5-15); Carbon Dioxide 29 mmol/L (20-31)
[2024-09-15 08:00] LABS: Basophils % (auto) 0.4 % (0.0-2.0); Eosinophils # (auto) 0.2 10 ^3/uL (0-0.8); Eosinophils % (auto) 2.2 % (0.0-7.0); Hematocrit 50.8 % (41.0-53.0); Hemoglobin 17.8 g/dL (13.5-17.5); Lymphocytes % (auto) 28.3 % (10.0-50.0); Mean Corpuscular Hemoglobin 36.4 pg (28.0-32.0); Mean Corpuscular Hgb Conc. 35.1 g/dL (32.0-36.0); Mean Corpuscular Volume 103.7 fL (80.0-100.0); Monocytes # (auto) 0.7 10 ^3/uL (0-1.3); Monocytes % (auto) 10.4 % (0.0-12.0); Neutrophils # (auto) 4.2 10 ^3/uL (1.6-8.6); Neutrophils % (auto) 58.7 % (37.0-80.0); Platelet Count (auto) 192 10^3/uL (140-450); Red Cell Distribution Width 12.9 % (11.8-14.3); White Blood Cell 7.2 10^3/uL (4.4-10.8)
[2024-09-15 08:03] LABS: Calcium 10.4 mg/dL (8.7-10.4)
[2024-09-15 08:04] LABS: Blood Urea Nitrogen 21 mg/dL (9-23); Glucose 89 mg/dL (74-106)
[2024-09-15] MEDS ORDERED: HEPARIN SODIUM (PORCINE) 5000 UNITS/ML 1ML VIAL ONE (08:53)
[2024-09-15] MEDS ORDERED: ANGIOMAX 250 MG VIAL IV ONE (08:53)
[2024-09-15] MEDS ORDERED: fentaNYL CITRATE 100 MCG/2 ML VL ONE (08:53)
[2024-09-15] MEDS ORDERED: VERAPAMIL 2.5MG/ML INJ 2ML VIAL IV ONE (08:53)
[2024-09-15] MEDS ORDERED: SODIUM CHL 0.9% 0 ML ONE (08:54)
[2024-09-15] MEDS ORDERED: MIDAZOLAM HCL 2MG/2ML 2ml VIAL (1mg/ml) ONE (08:54)
[2024-09-15] MEDS ORDERED: LIDOCAINE 2%HCL (LOCAL ANESTH.) INJ 20ML MDV ONE (08:54)
[2024-09-15] MEDS ORDERED: IODIXANOL 320MG/ML 100ML BTL IV ONE (09:16)
--- NOTE | 2024-09-15 09:26 | DVHPN2 ---
Progress Note Date Seen: Sep 15, 2024 Has the PT tested + for MRSA If YES, has PT been informed?: No Medical Necessity Reason Pt with a Central, PICC or Fol: No Subjective Patient reports: Feels better Objective vital signs Vital Sign Date Time Temp Pulse Resp B/P (MAP) Pulse Ox O2 Delivery O2 Flow Rate FiO2 09/15/24 06:10 96 Room Air* 0 21 09/15/24 05:00 97.7 74 16 127/74 (91) 97.7 Total Intake and Output 09/14/24 09/14/24 09/15/24 15:00 23:00 07:00 Intake Total 1150 ml 0 ml Balance 1150 ml 0 ml medications Current Medications Medications Dose Ordered Sig/Lauren Route Start Time Stop Time Status Last Admin Dose Admin Ondansetron HCl 4 mg Q4HP PRN IV 09/11/24 20:00 Nitroglycerin 0.4 mg Q5MINP PRN SL 09/11/24 20:00 Morphine Sulfate 2 mg Q30M PRN IV 09/11/24 20:00 Albuterol 2.5 mg Q6HPRN PRN NEB 09/11/24 20:00 Ondansetron HCl 4 mg Q4HP PRN IV 09/11/24 20:15 UNV Atorvastatin Calcium 80 mg HS PO 09/12/24 22:00 09/14/24 20:59 80 MG Clonazepam 0.5 mg DAILY PO 09/13/24 10:00 09/14/24 09:14 0.5 MG Furosemide 20 mg DAILY PO 09/13/24 10:00 09/14/24 09:14 20 MG Ferrous Sulfate 325 mg BID PO 09/12/24 22:00 09/14/24 20:59 325 MG Fluoxetine HCl 20 mg DAILY PO 09/13/24 10:00 09/14/24 09:13 20 MG Patient Own Medication 60 mg DAILY PO 09/13/24 10:00 Pantoprazole Sodium 40 mg DAILY@0600 PO 09/13/24 06:00 09/14/24 05:45 40 MG Enoxaparin Sodium 40 mg DAILY SC 09/13/24 10:00 09/14/24 09:13 40 MG Examination: GENERAL:Abnormal, HEENT:Abnormal, LUNGS:Abnormal, CVS:Abnormal, ABDOMEN:Abnormal laboratory and microbiology Laboratory Tests 09/15/24 06:50 Test 09/15/24 06:50 Range/Units Serum Glucose 89 74-106 mg/dL Problem List/Assessment/Plan Problem List/Assessment/Plan r/o ACS htn HL copd hx of ppm s/p cath no severe cad significant LAD intramyocardial bridge noted fu dr fausto arguello recs Plan discussed with: Patient Date of Service: Sep 15, 2024 Billing Provider: BRETT PAINTING MD Common Visit Codes: NOT BILLABLE BRETT PAINTING MD Sep 15, 2024 09:26
--- NOTE | 2024-09-15 09:29 | DVHOP2 ---
Operative Report Operative Report CARDIAC UNIT EDUCATOR PROCEDURE REPORT [place], [place] Date of Service: 09/15/24 [employer] Inspector: Brett Painting MD PROCEDURES PERFORMED: Coronary angiogram, left heart catheterization, conscious sedation administration and supervision, less than 15 minutes; fluoroscopy use and interpretation. PREOPERATIVE DIAGNOSES: ACS/nstemi POSTOP DIAGNOSIS: LAD bridge DESCRIPTION OF PROCEDURE: The patient or appropriate family signed informed consent understanding the risks, benefits and alternatives of the procedure, they wished to proceed. The patient was brought to the cardiac bundle tier and labeler in n.p.o. state. The patient was prepped in a sterile fashion. Sedation was used per cardiac cath protocol. I administered 2 mL of 2% lidocaine to the right wrist. With an antegrade front wall puncture. I cannulated the right radial artery and placed a 6-Arabic Glidesheath slender. Next, an intra-arterial spasmolytic was administered. Next, a - 6French Cotati catheter and XXXXX guide and were used for coronary angiogram and LVEDP measurement and pressure pullback. At the completion of procedure, all guides and wires were removed, and there were no immediate complications. 5000 U of IV Heparin given. FINDINGS: RCA: Moderate vessel off the right sinus of Valsalva, there is no severe flow limiting stenosis. dominant vessel. LEFT MAIN: Moderate size left main, it bifurcates into LAD and circumflex. no stenosis CIRCUMFLEX: Moderate caliber vessel coming off the left main with no flow limiting stenosis. LAD: LAD is a moderate caliber vessel coming of the left main. no stenosis. there is a significant LAD intramyocardial bridge with obliteration of the vessel in systole. LVEDP of 8 mmhg CONCLUSIONS: 1. LAD bridge BRETT PAINTING MD Sep 15, 2024 09:29
[2024-09-15] MEDS ORDERED: ATOR20TA50 PO (13:41)
--- NOTE | 2024-09-15 15:12 | DVHDSRES ---
Discharge Summary Date of Admission Resident Creating Document: MAGALIE HENLEY RESIDENT Sep 11, 2024 at 20:00 Date of Discharge: Sep 15, 2024 Admitting Diagnosis chest pain Wounds: Labs/Diagnostic Data: Laboratory Results Test 09/15/24 06:50 09/14/24 15:00 09/14/24 12:16 09/12/24 05:49 White Blood Count 7.2 10^3/uL (4.4-10.8) Red Blood Count 4.90 10^6/uL (4.5-5.90) Hemoglobin 17.8 g/dL (13.5-17.5) Hematocrit 50.8 % (41.0-53.0) Mean Corpuscular Volume 103.7 fL (80.0-100.0) Mean Corpuscular Hemoglobin 36.4 pg (28.0-32.0) Mean Corpuscular Hemoglobin Concent 35.1 g/dL (32.0-36.0) Red Cell Distribution Width 12.9 % (11.8-14.3) Platelet Count 192 10^3/uL (140-450) Mean Platelet Volume 6.5 fL (6.9-10.8) Neutrophils (%) (Auto) 58.7 % (37.0-80.0) Lymphocytes (%) (Auto) 28.3 % (10.0-50.0) Monocytes (%) (Auto) 10.4 % (0.0-12.0) Eosinophils (%) (Auto) 2.2 % (0.0-7.0) Basophils (%) (Auto) 0.4 % (0.0-2.0) Neutrophils # (Auto) 4.2 10 ^3/uL (1.6-8.6) Lymphocytes # (Auto) 2.0 10 ^3/uL (0.4-5.4) Monocytes # (Auto) 0.7 10 ^3/uL (0-1.3) Eosinophils # (Auto) 0.2 10 ^3/uL (0-0.8) Basophils # (Auto) 0 10 ^3/uL (0-0.2) Nucleated Red Blood Cells 0.2 % Sodium Level 139 mmol/L (136-145) Potassium Level 3.9 mmol/L (3.5-5.1) Chloride Level 103 mmol/L (98-107) Carbon Dioxide Level 29 mmol/L (20-31) Anion Gap 7 (5-15) Blood Urea Nitrogen 21 mg/dL (9-23) Creatinine 1.05 mg/dL (0.700-1.30) Glomerular Filtration Rate Calc 82 mL/min (>90) BUN/Creatinine Ratio 20.0 (10.0-20.0) Serum Glucose 89 mg/dL (74-106) Calcium Level 10.4 mg/dL (8.7-10.4) Stool for White Cells None seen Prothrombin Time 10.9 sec (9.3-11.8) Prothrombin Time INR 1.03 (0.9-1.15) Activated Partial Thromboplast Time 30.1 SEC (24.5-34.5) Hemoglobin A1c 5.2 % A1C (<5.7) B-Type Natriuretic Peptide 12.79 pg/mL (0-100) Hepatitis B Surface Antibody Positive (Negative) Hepatitis C Antibody Negative (Negative) Test 09/11/24 18:37 09/11/24 17:58 09/11/24 17:55 09/11/24 17:41 Troponin I High Sensitivity 19 ng/L (</=54) Thyroid Stimulating Hormone (TSH) 1.32 uIU/mL (0.55-4.78) Urine Color Yellow (Yellow) Urine Clarity Clear (Clear) Urine pH 6.5 (5.0-9.0) Urine Specific [place] 1.015 (1.001-1.035) Urine Protein Negative (Negative) Urine Ketones Negative (Negative) Urine Blood Negative /uL (Negative) Urine Nitrite Negative (Negative) Urine Bilirubin Negative (Negative) Urine Urobilinogen Normal mg/dL (Negative) Urine Leukocyte Esterase Negative /uL (Negative) Urine RBC <1 /hpf (0 - 3) Urine Microscopic WBC 1 /HPF (0-3) Urine Squamous Epithelial Cells Few /hpf (<5) Urine Bacteria None seen /hpf (None Seen) Urine Mucus Few (None Seen) Urine Glucose Normal mg/dL (Normal) Triglycerides Level 136 mg/dL (< 150) Cholesterol Level 264 mg/dL (< 200) LDL Cholesterol 210 mg/dL (< 100) HDL Cholesterol 43 mg/dL (40-59) Total Bilirubin 0.7 mg/dL (0.2-1.0) Aspartate Amino Transferase (AST) 27 U/L (13-40) Alanine Aminotransferase (ALT) 22 U/L (7-40) Alkaline Phosphatase 113 U/L (46-116) Total Protein 7.8 g/dL (5.7-8.2) Albumin 4.9 g/dL (3.2-4.8) Other Laboratory Tests 09/15/24 06:50 Brief Hx & Hospital Course: H&P: This is a 59-year-old male with past medical history of CVA, sick sinus syndrome status post pacemaker, asthma who came to the hospital with a chief complaint of substernal chest pain, radiating to back, left arm and jaw pain. Patient was given nitroglycerin which immediately resolved chest pain. Patient continued to be on telemetry, sinus rhythm. EKG showed no significant ST elevation. Troponin is not elevated. Cardiology consultation has been done for chest pain, echocardiogram showed an LVEF of 65% with normal cardiac valves and no pericardial effusion. The patient was admitted for further assessment and management. Hospital cource: Patient came to the hospital with a chief complaint of chest pain, Cardiology consultation was done. Underwent echocardiogram which showed left ventricular ejection fraction of 65% with normal cardiac while and no pericardial infusion. Patient underwent coronary angiogram on 09/15/2024. Coronary angiogram finding: RCA: Moderate vessel off the right sinus of Valsalva, there is no severe flow limiting stenosis. dominant vessel. LEFT MAIN: Moderate size left main, it bifurcates into LAD and circumflex. no stenosis CIRCUMFLEX: Moderate caliber vessel coming off the left main with no flow limiting stenosis. LAD: LAD is a moderate caliber vessel coming of the left main. no stenosis. there is a significant LAD intramyocardial bridge with obliteration of the vessel in systole. LVEDP of 8 mmhg Considering normal coronary arteries, with elevated LDL 210, patient will be sent home with medical management with high dose statin atorvastatin 80 mg p.o. daily, advised to follow up with primary care patient continue home medication. Given patient hemodynamically stable, patient will be discharged home. Condition at Discharge: Stable Final Diagnosis/Problems List Acute chest pain likely due to stable angina Ruled out ACS History of sick sinus syndrome Status post pacemaker Dyslipidemia History of asthma Depression no suicide ideation History of CVA Allergy of aspirin Acute diarrhea Discharge Disposition: Home Discharge Instruct/Medications Diet: Cardiac 2g Na,low cholest Activity: No Restrictions, As Tolerated Follow Up/Referral: -follow up with pcp in 1 week Medications: see prescription Discharge Statement: "Patient was advised to return to the ER or call 911 if any headaches, dizziness, shortness of breath, chest pain, abdominal pain, bleeding, fevers, or worsening of medical condition. Patient was counseled about treatment plan, medications, possible side effects, patientverbalized understanding. All questions were answered to the best of my ability. This discharge took greater then 30 minutes in planning, reviewing documentation, counseling the patient, and discussing with other team members." ASSESSMENT ASSESSMENT Assessment Acute chest pain likely due to stable angina Ruled out ACS History of sick sinus syndrome Status post pacemaker Dyslipidemia History of asthma Depression no suicide ideation History of CVA Allergy of aspirin Acute diarrhea Date of Service: Sep 15, 2024 Billing Provider: SONG YOUNGER MD Common Visit Codes: [id number]/[id number] DISCH DAY >30min GERMÁN ARMENADRIZ RESIDENT Sep 15, 2024 15:12 SONG YOUNGER MD Sep 16, 2024 20:49
--- NOTE | 2024-09-15 22:54 | DVHPN2 ---
Progress Note - Dictate Date Seen: Sep 15, 2024 Has the PT tested + for MRSA If YES, has PT been informed?: No Medical Necessity Reason Pt with a Central, PICC or Fol: No Subjective Patient was seen and evaluated in follow up. Patient underwent coronary angiogram, left heart catheterization which showed LAD bridge. Patient denies any cardiac symptoms. Patient is cardiac stable for discharge. Telemetry reviewed. vital signs Vital Sign Date Time Temp Pulse Resp B/P (MAP) Pulse Ox O2 Delivery O2 Flow Rate FiO2 09/15/24 18:37 96 Room Air 09/15/24 18:37 0 21 09/15/24 17:00 98.5 66 17 108/70 (83) 98.5 Total Intake and Output 09/14/24 09/14/24 09/15/24 15:00 23:00 07:00 Intake Total 1150 ml 0 ml Balance 1150 ml 0 ml medications Current Medications Medications Dose Ordered Sig/Lauren Route Start Time Stop Time Status Last Admin Dose Admin Ondansetron HCl 4 mg Q4HP PRN IV 09/11/24 20:15 UNV objective GENERAL: Alert and oriented x 3. No acute distress. EYES: PERRL, EOMI. Anicteric. HENT: Moist mucous membranes. LUNGS: Clear to auscultation bilaterally. CARDIOVASCULAR: Regular rate and rhythm. ABDOMEN: Soft, nontender and nondistended. EXTREMITIES: No edema. NEUROLOGIC: No focal neurological deficits. SKIN: Warm, dry. laboratory and microbiology Laboratory Tests 09/15/24 06:50 Test 09/15/24 06:50 Range/Units Serum Glucose 89 74-106 mg/dL Problem List Chest pain. Sick sinus syndrome status post permanent pacemaker (Biotronik). Dyslipidemia, newly diagnosed. Asthma. CVA without residual deficit. Depression. Anxiety. Remote history of polysubstance use. Tobacco use. Assessment/Plan Continued all current supportive medical care. Lipitor. DVT and GI prophylactics. Diuretics with Lasix. Morphine for pain management. Nitro SL. Additional plan as per the hospital course. Plan discussed with: Patient CLARICE BUTLER MD Sep 15, 2024 22:54
== END 2024-09-15 19:22 | disposition home or self-care (01) | DRG 191 ==
LOC: ER 17:22 → EDBD 17:22 → OVERFLOW 20:00 → TELE-CENTR 09-12 14:21
PROVIDERS: ADMIT Internal Medicine; ATTEND Emergency Medicine
PROC: 4B02XSZ Measurement of Cardiac Pacemaker, External Approach (ICD-10-PCS; 2024-09-12)
PROC: 4A023N7 Measurement of Cardiac Sampling and Pressure, Left Heart, Percutaneous Approach (ICD-10-PCS; principal; 2024-09-15)
PROC: B2111ZZ Fluoroscopy of Multiple Coronary Arteries using Low Osmolar Contrast (ICD-10-PCS; 2024-09-15)
DX: I20.89 Other forms of angina pectoris (principal); Q24.5 Malformation of coronary vessels; E78.5 Hyperlipidemia, unspecified; F32.A Depression, unspecified; J45.909 Unspecified asthma, uncomplicated; F41.9 Anxiety disorder, unspecified; F15.90 Other stimulant use, unspecified, uncomplicated; R19.7 Diarrhea, unspecified; Z95.0 Presence of cardiac pacemaker; Z86.73 Personal history of transient ischemic attack (TIA), and cerebral infarction without residual deficits; Z83.3 Family history of diabetes mellitus; Z82.5 Family history of asthma and other chronic lower respiratory diseases; Z82.49 Family history of ischemic heart disease and other diseases of the circulatory system; Z81.8 Family history of other mental and behavioral disorders; Z72.0 Tobacco use; Z88.6 Allergy status to analgesic agent; Z88.5 Allergy status to narcotic agent
CPT/HCPCS: 36415; 71045; 80048; 80053; 80061; 81001; 83036; 83880; 84443; 84484; 85025; 85048; 85610; 85730; 86706; 86803; 86850; 86900; 86901; 87045; 87427; 93005; 93306; 93458; 99152; G0378; J2250; Q9967